=== PATIENT | female | born 1950 | race Caucasian/White ===

== ENCOUNTER 2018-01-05 06:47 | Emergency (ER) | payer MEDICARE, OTHER, SELFPAY ==
[2018-01-05 06:51] VITALS: BP 189/98; PULSE 73; RESP 16; TEMP 36.9; O2SAT 94; BMI 20.9
--- NOTE | 2018-01-05 07:05 | XR_ITS ---
XR chest 2V Ordering Physician: Mode Egan MD Patient Age: 67 years: Female HISTORY: ITS.REASON: coughcough congestion TECHNIQUE: PA lateral chest COMPARISON :PA and lateral chest FINDINGS Lungs are hyperexpanded with slight flattening of the diaphragm. I believe there is some mild central airway inflammation particularly at the right infrahilar region. Suggestion minor streaky infiltrate here. Costochondral calcifications also into density at the medial right base. No focal consolidation evident. Heart elma and mediastinal structures satisfactory. No pneumothorax. No pleural effusion. Chest wall satisfactory. T-spine intact IMPRESSION--------- Mild hyperexpansion. Mild chronic changes A suspect central airway inflammatory changes with suggestion minimal streaky infiltrate right infrahilar region.
--- NOTE | 2018-01-05 07:17 | HMH.EDGENADL ---
ED Disposition Clinical Impression: RAD (reactive airway disease) Qualifiers: Asthma severity: moderate Asthma persistence: persistent Asthma complication type: with acute exacerbation Qualified Code(s): J45.41 - Moderate persistent asthma with (acute) exacerbation Acute bronchitis Qualifiers: Bronchitis organism: unspecified organism Qualified Code(s): J20.9 - Acute bronchitis, unspecified Disposition: Home, Self-Care Condition on Discharge: Good Instructions: DI for Acute Bronchitis, DI for Reactive Airway Disease-Adult Prescriptions: Albuterol Sulfate [Albuterol HFA Inhaler] 2 puffs IH Q4H PRN #1 inh PRN Reason: Shortness Of Breath Or Wheezing Amoxicillin/Potassium Clav [Augmentin 875-125 Tablet] 1 tab PO Q12H #20 tab Referrals: Yunier Carreon MD [Primary Care Provider] - Time of Disposition: 08:07 - Critical Care Critical Care Time: No Attestation: On , the high probability of a clinically significant, sudden or life threatening deterioration of the following system(s) required my full and direct attention, intervention and personal management. The time I documented below is in addition to time spent performing reported procedures but includes the following listed in this critical care notation. Medical Decision Making - Medical Records Medical records reviewed: Yes: I reviewed the patient's medical records. Vital Signs: 01/05/18 06:51 Temperature 98.4 F Temperature Source Oral Pulse Rate [Left Radial] 73 Respiratory Rate 16 Blood Pressure [Right Arm] 189/98 Blood Pressure Mean [Right Arm] 128 Blood Pressure Source [Right Arm] Automatic Cuff Blood Pressure Position [Right Arm] Sitting 02 Sat by Pulse Oximetry 94 L Oxygen Delivery Method Room Air - Lab Data Lab results reviewed: Yes: I reviewed the patient's lab results. Lab Results 01/05/18 07:00: WBC 8.6, RBC 4.67, Hgb 12.6, Hct 39.7, MCV 85.1, MCH 27.0, MCHC 31.8, RDW 15.3, Plt Count 267, MPV 7.8, Neut % (Auto) 71.4, Lymph % (Auto) 19.3, [place] % (Auto) 8.4, Eos % (Auto) 0.5, Baso % (Auto) 0.4, Neut # (Auto) 6.1, Lymph # (Auto) 1.7, [place] # (Auto) 0.7, Eos # (Auto) 0.0, Baso # (Auto) 0.0 01/05/18 07:00: Sodium 133 L, Potassium 3.3 L, Chloride 95 L, Carbon Dioxide 34 H, Anion Gap 7.3, BUN 11, Creatinine 0.65, Estimated Creat Clear 51, Estimated GFR 91, Est GFR ( Amer) 110, Glucose 86 01/05/18 07:00: Influenza Type A Ag Negative, Influenza Type B Ag Negative, Group A Strep Rapid Negative Result diagrams: 01/05/18 07:00 01/05/18 07:00 Orders (Tests/Meds): ED MEDICATIONS Discontinued Medications Generic Name Dose Route Start Last Admin Trade Name Freq PRN Reason Stop Dose Admin Albuterol/Ipratropium 3 ml 01/05/18 08:01 Duoneb 3ml Neb IH 01/05/18 08:02 ONCE ONE Ceftriaxone Sodium 1,000 mg/ 50 mls @ 100 mls/hr 01/05/18 08:02 01/05/18 08:07 Sodium Chloride IV 01/05/18 08:03 100 mls/hr ONCE ONE Administration Protocol ORDERS Category Date Time Status Chest XR 2 view (NOT portable) [XR chest 2V] Stat Exams 01/05/18 07:05 Taken Cardiac Enzymes Stat Lab 01/05/18 07:00 Received D-Dimer Stat Lab 01/05/18 07:00 Received Strep Screen Confirmation Stat Micro 01/05/18 07:00 Received EKG Request [ECG Request by /Broderick] Stat Y 01/05/18 08:11 Ordered - Radiology Data #1 Image(s): Chest Image Reviewed: Yes I reviewed the patient's radiology image Preliminary Findings: Normal/NAD - ECG Data Tracing #1 I reviewed this ECG and interpreted as documented below: ECG normal with no acute: arrhythmias, ischemia, conduction abnormalities, chamber hypertrophy Normal Sinus Rhythm: No - Chetan Inquiry Pt receiving controlled substance: No - Reevaluation(s) Time: 08:15 Reevaluation #1: 814-case turned over to Dr. Dumont, awaiting results, and NEB treatment General Adult HPI - General Chief complaint: Shortness of Breath/Dyspnea Stated complaint: SOB Mode of Arrival
[2018-01-05 07:22] LABS: Basophils % 0.4 % (0.1-2.0); Eosinophils % 0.5 % (0.1-12.0); Hematocrit 39.7 % (37.0-47.0); Hemoglobin 12.6 g/dL (12.2-16.2); Lymphocytes # 1.7 K/mm3 (0.7-4.5); Lymphocytes % 19.3 K/mm3 (10-50); Mean Corpuscular HGB Conc 31.8 g/dL (31.8-35.4); Mean Corpuscular Volume 85.1 fl (81-99); Mean Platelet Volume 7.8 fl (7.4-10.4); Monocytes # 0.7 K/mm3 (0.1-1.0); Monocytes % 8.4 % (1.7-9.3); Neutrophils # 6.1 K/mm3 (1.8-7.8); Neutrophils % 71.4 % (37.0-80.0); Platelet Count 267 K/mm3 (142-424); Red Blood Count 4.67 M/mm3 (4.20-5.40); Red Cell Distribution Width 15.3 % (11.5-17.5); White Blood Count 8.6 K/mm3 (4.8-10.8)
[2018-01-05 07:39] LABS: Strep Scrn Group A (Rapid) Negative (Negative)
[2018-01-05 08:17] LABS: Anion Gap 7.3 mEq/L (5-15); Carbon Dioxide 34 mmol/L (21.0-32.0); Chloride 95 mmol/L (98-107); Potassium 3.3 mmoL/L (3.5-5.1); Sodium 133 mmol/L (136-145)
[2018-01-05 08:18] LABS: Blood Urea Nitrogen 11 mg/dL (7-18); Creatinine Clearance Estimated 51 mL/min (0-300); Creatinine,Serum 0.65 mg/dL (0.55-1.02); Estimated Glomerular Filt Rate 91 ml/min (>60); GFR (African American) 110 ML/MIN (>60); Glucose 86 mg/dL (74-106)
[2018-01-05 08:25] VITALS: PULSE 76; PULSE 80
[2018-01-05 08:32] LABS: Creatine Kinase 148 U/L (26-192)
[2018-01-05 08:33] LABS: CKMB Relative Index 0.5 U/L (0-4.0); Creatine Kinase MB 0.8 mg/ml (0.0-3.6); Troponin I < 0.02 ng/ml (0.00-0.06)
[2018-01-05 08:35] LABS: D-Dimer 340 (0-400)
[2018-01-05 10:09] VITALS: BP 179/85; PULSE 69; RESP 20; TEMP 36.9; O2SAT 93
== END 2018-01-05 10:16 | disposition home or self-care (01) ==
PROVIDERS: Emergency Provider Emergency Medicine; Family Provider Internal Medicine Adolescent Medicine; PCP Internal Medicine Adolescent Medicine
DX: J45.41 Moderate persistent asthma with (acute) exacerbation (principal); J20.9 Acute bronchitis, unspecified; F17.210 Nicotine dependence, cigarettes, uncomplicated
CPT/HCPCS: 71046; 80048; 82550; 82553; 84484; 85025; 85378; 87275; 87276; 87430; 93005; 93041; 96365; 96374; 96375; 99283

== ENCOUNTER → 2018-06-09 08:18 | Outpatient (CLI) | payer MEDICARE, OTHER, SELFPAY ==
--- NOTE | 2018-06-09 08:21 | MM_ITS ---
MM Dig screening mamm BI w/CAD CAD Screening COMPARISON: Digital mammograms with CAD 10/08/2016 and 09/22/2015 INDICATION: There is no personal or family history of breast cancer TECHNIQUE: Standard CC and MLO images were obtained. R2 CAD reviewed. FINDINGS: The breasts are composed primarily of fat with minimal scattered fibroglandular densities in each breast. There is a mole marker left breast. There is no suspicious lesion in either breast and there are no suspicious microcalcifications. There are small nodes in both axilla. IMPRESSION: Fatty type breast parenchyma with no suspicious lesion seen BI-RADS Category: 2 Benign Finding(s) RECOMMENDED FOLLOW-UP: 1YR - 1 YEAR FOLLOW-UP (A letter has been sent to the patient regarding results of the study.)
--- NOTE | 2018-06-09 08:27 | CA_ITS ---
PROCEDURE: 2-D M-mode and color Doppler study INDICATIONS FOR THE TEST: Chest pain COPD Heart Murmur+ Tobacco Smoking+ Palpitations Fatigue Syncope Edema Hypertension+Diabetes Mellitus Rheumatic Fever SOB GORDON Obesity Hyperlipidemia+ Family History HD Additional History PATIENT INFORMATION HEIGHT: 65 WEIGHT:130 GENDER: Female B/P:189/98 2-D/M-MODE INTERPRETATION: 2-D MEASUREMENTS OBSERVED VALUES IN CMS Right Ventricular Dimension (RVDd) 2.5 Interventricular Septum (Thickness)(IVsd) 1.3 Left Ventricular Internal Dimensions(LVIDd) 4.4 Left Ventricular Posterior Wall (Thickness)(LVPWd) 1.3 Aortic Root 3.0 Aortic Cusp Separation 1.1 Left Atrial Dimensions (LAD) 4.3 2D 1. Left atrium is mildly enlarged, left ventricle is normal size, mild concentric left ventricular hypertrophy, visually estimated ejection fraction 55% with no obvious regional wall motion abnormality. 2. The right atrium and right ventricle are normal size and contractility. 3. The aortic valve is minimally thickened and calcified. With restriction the leaflet mobility. 4. Mitral valve has mitral annular calcification. 5. The tricuspid valve is structurally normal. 6. No significant pericardial effusion noted. 7. Pulmonic valve is poorly visualized. DOPPLER INTERROGATION: 1. The maximum aortic out flow velocity recorded study is 2.3 m/s, resulting in a mean gradient across valve of 12 mmHg, this represents mild aortic stenosis, there is no significant aortic insufficiency seen. 2. The mitral inflow velocity within normal range, there is no mitral stenosis, there is mild mitral regurgitation, grade 1 diastolic dysfunction seen with tissue Doppler evidence of raised left atrial pressure. 3. Mild tricuspid regurgitation noted, tricuspid and jet velocity insufficient for calculation of the right ventricular systolic pressure. CONCLUSION: 1. Mildly enlarged left atrium, normal left ventricular size, mild concentric left ventricular hypertrophy, visually estimated ejection fraction 55% with no obvious regional wall motion abnormality, grade 1 diastolic dysfunction seen with tissue Doppler evidence of raised left atrial pressure. 2. Thickened and calcified aortic valve, mean gradient across valve of 12 mmHg, this represents mild aortic stenosis, there is no significant aortic insufficiency seen. 3. Mild mitral and tricuspid regurgitation 4. No significant pericardial effusion noted.
== END ==
PROVIDERS: Family Provider Internal Medicine Adolescent Medicine; PCP Internal Medicine Adolescent Medicine; Visit Provider Nurse Practitioner Family
DX: Z12.31 Encounter for screening mammogram for malignant neoplasm of breast (principal); R01.1 Cardiac murmur, unspecified
CPT/HCPCS: 77067; 93306

== ENCOUNTER → 2019-05-12 12:35 | Outpatient (CLI) | payer MEDICARE, OTHER, SELFPAY ==
--- NOTE | 2019-05-12 12:41 | MR_ITS ---
MR lumbar spine wo con HISTORY: ITS.REASON: LUMBAGO WITH SCIATICA ORDERING PHYSICIAN: Molly Beck PATIENT AGE: 69 years Comparison: None TECHNIQUE: Standard multiplanar multiecho sequences are performed without contrast. 3-D MIP and myelographic images are also rendered and reviewed FINDINGS: There were no areas of subluxation. There is mild scoliosis. There are areas of low T1 and increased T2 signal consistent with marrow edema especially L3 vertebral level with moderate compression of formerly along the right side of the L3 vertebral body with mild paraspinal reaction. There is no evidence of a posterior displaced fracture fragment. The other areas of marrow edema or consistent with type I degenerative changes at the anterior T-2-3 level. There are areas of loss of disc space height throughout the lumbar spine which is more severe at L2-3 and L3-4 and moderate at L4-5. There are generalized mild bulge is at T11-12 and T12-L1 level. There is no conus deformity. L1-2 shows mild bulge with mild ventral thecal sac deformity and only mild facet hypertrophy. L2-3 moderate disc bulge with moderate facet hypertrophy and moderate to severe thecal sac attenuation. L3-4 shows mild bulge and facet hypertrophy with moderate generalized thecal sac attenuation. L4-5 shows mild bulge and moderate facet hypertrophy with moderate thecal sac attenuation greater along the left lateral recess. L5-S1 shows mild bulge and moderate facet hypertrophy greater on the right with mild thecal sac attenuation. There are a few small rounded foci of fluid signal within the posterior soft tissues adjacent to the L5 spinous process and are probably small cysts which are nonspecific there is a similar focus lateral to the right L5-S1 facet likely a degenerative synovial cyst. Foraminal areas show some severe effacement of the epidural fat causing severe foraminal stenosis which occurs on the left at L4-5 and severe on the right at L2-3 and L4-5. The conus is normal. There are several levels of crowding of the cauda equina nerve roots, which is more evident at L2-3. IMPRESSION: Multiple levels of diffuse intervertebral osteochondrosis with associated disc bulges. As discussed above acquired central canal stenosis due to the bulges and posterior element hypertrophy and this is moderate to severe at L2-3, L3-4 and L4-5 with also severe left lateral recess stenosis at L4-5 and milder central stenosis at L5-S1 and L1-S2. Severe foraminal stenosis on the left at L 4-5 and on the right at L2-3 and L 3-4. Moderate right-sided L3 compression fracture which is likely acute to subacute without encroachment upon the vertebral canal.
== END ==
PROVIDERS: PCP Nurse Practitioner Family; Visit Provider Nurse Practitioner Family
DX: M54.42 Lumbago with sciatica, left side (principal)
CPT/HCPCS: 72148; 76376

== ENCOUNTER 2019-05-27 10:00 | Outpatient (RCR) | payer MEDICARE, OTHER, SELFPAY | END 2019-06-09 15:22 | disposition home or self-care (01) | LOC: PT.CARL 10:00 | PROVIDERS: Visit Provider Nurse Practitioner Family | DX: M54.42 Lumbago with sciatica, left side (principal) | CPT/HCPCS: 97012; 97014; 97110; 97140; 97163; G0283 ==

== ENCOUNTER 2019-08-17 10:00 | Outpatient (RCR) | payer MEDICARE, OTHER, SELFPAY | END 2019-09-14 11:00 | disposition home or self-care (01) | LOC: PT.CARL 10:00 | PROVIDERS: PCP Nurse Practitioner Family; Visit Provider Neurological Surgery | DX: M54.5 Low back pain (principal) | CPT/HCPCS: 97014; 97110; 97163; G0283 ==

== ENCOUNTER 2021-03-19 11:00 | Outpatient (RCR) | payer MEDICARE, OTHER, SELFPAY | END 2021-04-19 09:49 | disposition home or self-care (01) | LOC: PT.CARL 11:00 | PROVIDERS: PCP Nurse Practitioner Family; Visit Provider Neurological Surgery | DX: Z48.89 Encounter for other specified surgical aftercare (principal); M54.5 Low back pain | CPT/HCPCS: 97110; 97140; 97163 ==

== ENCOUNTER → 2021-03-30 12:43 | Outpatient (CLI) | payer MEDICARE, OTHER, SELFPAY ==
--- NOTE | 2021-03-30 12:46 | CA_ITS ---
APPROVED REPORT EXAM: Comprehensive 2D, Doppler, and color-flow Echocardiogram Marine Services Technician: Natali Grace RDCS Ht: 5 ft 5 in Wt: 130lbs BSA: 1.65 BP: 174/92 mmHg Indications: Murmur, Shortness of Breath, Fatigue, Hyperlipidemia, Hypertension/HDD, smoker, COPD 2D Dimensions LVOT 1.92 cm (M/F) 1.5-2.5 LA Volume 37.80 mL LA Volume Index [id number] mL/m2 (M/F) 16-34 M-Mode Dimensions RVDd 2.21 cm (0.9-2.6) LA Diam 4.48 cm (1.9-4.0) LVDd 4.53 cm (3.5-5.7) Ao Diam 3.12 cm (2.0-3.7) LVDs 2.82 cm (3.5-5.7) IVSd 1.48 cm (0.6-1.1) PWd 1.27 cm (0.6-1.1) EF (Teich) 67.90% FS 37.70% EDV (Teich) 93.90 mL ESV (Teich) 30.10 mL LV Diastology E Decel Time 360.00 (160-240 msec) E/A Ratio 0.66 Aortic Valve LVOT Max 182.00 (70-110 cm/s) LVOT VTI 42.75 cm AoV Peak Tim. 300.00 (50-130 cm/s) AO Peak GR. 36.00 mmHg AO Mean GR. 19.00 (<5 mmHg) AO VTI 68.56 (18-25 cm) HILARIA (VTI) 1.81 (2.5-4.5 cm2) Mitral Valve MV A Velocity 111.00 (40-130 cm/s) E/A Ratio 0.66 MV Decel. Time 360.00 (160-240 ms) Pulmonary Valve PV Peak Velocity 72.00 (50-150 cm/s) Tricuspid Valve TR P. Velocity 239.00 cm/s RAP Estimate 10.00 mmHg RVSP 32.80 mmHg Left Ventricle Left atrium is mildly enlarged, left ventricle is normal size, mild concentric left ventricular hypertrophy, visually estimated ejection fraction 55% with no regional wall motion abnormality, grade 1 diastolic dysfunction seen without tissue Doppler evidence of raise left atrial pressure. Right Ventricle Right atrium and right ventricle are mildly enlarged with normal contractility. Aortic Valve Aortic valve is thickened and calcified, mean gradient across valve is 21 mmHg, valve area is 1.6 cm, represents mild aortic stenosis, there is no aortic insufficiency. Mitral Valve Mitral valve is mildly thickened, there is mild mitral regurgitation. Tricuspid Valve Tricuspid grossly normal, there is mild tricuspid regurgitation, tricuspid regurgitation jet velocity is inadequate for calculation of the right ventricular systolic pressure. Pulmonic Valve Pulmonic valve is poorly visualized. Great Vessels Aortic root is normal size. Pericardium No significant pericardial effusion noted. Conclusion 1. Mildly enlarged left atrium, normal left ventricular size, mild concentric left ventricular hypertrophy, visually estimated ejection fraction 55% with no regional wall motion abnormality, grade 1 diastolic dysfunction seen without tissue Doppler evidence of raise left atrial pressure. 2. Thickened and calcified aortic valve with mean gradient across valve of 21 mmHg, valve area 1.6 cm, represents mild aortic stenosis. There is no aortic insufficiency. 3. Mild mitral and tricuspid regurgitation. 4. No significant pericardial effusion noted. Electronically signed by : Yusef Bradley, 04/01/2021 10:30:49
== END ==
PROVIDERS: PCP Nurse Practitioner Family; Visit Provider Nurse Practitioner Family
DX: I35.0 Nonrheumatic aortic (valve) stenosis (principal)
CPT/HCPCS: 93306

== ENCOUNTER → 2021-05-29 14:33 | Outpatient (CLI) | payer MEDICARE, OTHER, SELFPAY ==
--- NOTE | 2021-05-29 14:37 | MR_ITS ---
PROCEDURE INFORMATION: Exam: MR Thoracic Spine Without Contrast Exam date and time: 05/29/2021 2:37 PM Age: 71 years old Clinical indication: Pain in thoracic spine; Prior surgery; Surgery date: 1-6 months; Additional info: Thoracic, thoracolumbar and lumbosacral disc disorders. PT had back surgery in dec 2020 and has had back pain since. PT has a medtronic stimulator model #73712. Mri conditional. No prior TECHNIQUE: Imaging protocol: Multiplanar magnetic resonance images of the thoracic spine without intravenous contrast. COMPARISON: FINDINGS: Vertebrae: There are partially imaged vertical rods and pedicle screws at T11, T12 and L1. Spinal stimulator enters at the T9/10 level and terminates at T7. Spinal cord: Normal signal. No cord compression. T1-T2: No significant disc disease. No significant neural foraminal or spinal canal stenosis. T2-T3: No significant disc disease. No significant neural foraminal or spinal canal stenosis. T3-T4: There is shallow disc bulging. No significant neural foraminal or spinal canal stenosis. T4-T5: There is shallow disc bulging. No significant neural foraminal or spinal canal stenosis. T5-T6: There is shallow disc bulging. There is mild facet hypertrophy. No neural foraminal or significant spinal canal stenosis. T6-T7: No significant disc disease. No significant spinal canal stenosis. T7-T8: There is diffuse disc bulging. There is mild facet hypertrophy. The spinal canal and neural foramina are patent. T8-T9: There is diffuse disc bulging. There is mild facet hypertrophy. There is mild right and moderate left neural foraminal narrowing. No significant spinal canal stenosis. T9-T10: There is diffuse disc bulging. There is mild facet hypertrophy. There is mild right neural foraminal narrowing. T10-T11: There is diffuse disc bulging. There is mild facet hypertrophy. There is moderate to severe right and [id number] left neural foraminal narrowing. There is mild canal stenosis. T11-T12: There are fusion changes. There is shallow disc bulging. No significant spinal canal stenosis. Soft tissues: Unremarkable. IMPRESSION: 1. Changes reflecting thoracolumbar fusion and indwelling spinal stimulator. 2. Multilevel degenerative disc disease as described.
== END ==
PROVIDERS: PCP Nurse Practitioner Family; Visit Provider Nurse Practitioner Family
DX: M51.17 Intervertebral disc disorders with radiculopathy, lumbosacral region; M51.15 Intervertebral disc disorders with radiculopathy, thoracolumbar region
CPT/HCPCS: 72146

== ENCOUNTER → 2021-05-31 13:56 | Outpatient (CLI) | payer MEDICARE, OTHER, SELFPAY ==
--- NOTE | 2021-05-31 13:58 | MR_ITS ---
PROCEDURE: MR LUMBAR SPINE WO CON CLINICAL INDICATION: THORACIC, THORACOLUMBAR AND LUMBOSACRAL DISC DISORDER Lbp. Prior hx back surgery January 07. No injury or trauma. MR MR THORACIC SPINE WO CON from 05/29/2021 TECHNIQUE: Standard multiplanar multiecho sequences are performed without contrast. 3-D MIP and myelographic images are also rendered and reviewed FINDINGS: There is normal alignment. The spinal cord ends at the L2 level. There has been extensive lumbar surgery with inter pedicular screws at every level except for L3 with resultant significant artifact which obscures the disc space and surrounding anatomy. Posterior laminectomy perform from T12-S1. T12-L1: Inter pedicular screws present with resultant artifact. Minimal right paracentral disc protrusion. L1-L2: Inter pedicular screws present with resultant artifact. There is a small right paracentral disc herniation with minimal inferior extrusion. The disc is extruded inferiorly for length 10 mm. This has developed since the previous exam. L2-L3: Inter pedicular screws present at L2. Left-sided foraminal narrowing from facet and ligamentum hypertrophy. L3-L4: Inter pedicular screws present with artifact. L4-5: Inter pedicular screws present with artifact. Bilateral foraminal narrowing L5-S1: Mild bulging disc. Left-sided foraminal narrowing. There is mild diffuse enlargement of the thecal sac. Posterior to the thecal sac there is fluid intensity from T12-L4 within the laminectomy site. At the L2-L3 level there is some decreased T2 signal posterior to the thecal sac best seen on the sagittal images causing some impingement of the thecal sac posteriorly. This could be related to some residual bony elements from the surgery or ossification at the surgical site. This is causing some posterior impingement upon the thecal sac as the sac is dilated above and below this region. Please correlate with surgical procedure. IMPRESSION: 1. Extensive postsurgical changes from T12-S1. Please see above for detailed description at each level. Artifact is present from the inter pedicular screws obscuring fine detail.. 2. Small right paracentral disc protrusion at T12-L1 3. Small right paracentral disc herniation at L1-L2 with inferior extrusion 4. Areas of foraminal narrowing as described above. 5. Epidural postsurgical fluid collection posteriorly from T12-L4. 6. At the L2-L3 level there is some decreased T2 signal posterior to the thecal sac best seen on the sagittal images causing some impingement of the thecal sac posteriorly. This could be related to some residual bony elements from the surgery or ossification at the surgical site. This is causing some posterior impingement upon the thecal sac as the sac is dilated above and below this region. Please correlate with surgical procedure. Dictated by: David Garcia MD 06/01/2021 09:14 David Garcia MD in [place] 06/01/2021 09:16
== END ==
PROVIDERS: PCP Nurse Practitioner Family; Visit Provider Nurse Practitioner Family
DX: M51.15 Intervertebral disc disorders with radiculopathy, thoracolumbar region (principal)
CPT/HCPCS: 72148; 76376

== ENCOUNTER → 2021-06-01 13:37 | Outpatient (CLI) | payer MEDICARE, OTHER, SELFPAY ==
--- NOTE | 2021-06-01 13:41 | MR_ITS ---
PROCEDURE: MR CERVICAL SPINE WO CON CLINICAL INDICATION: THORACIC, THORACOLUMBAR DISC DISORDERS COMPARISON: No exams were available for comparison TECHNIQUE: Standard multiplanar multiecho sequences are performed without contrast. 3-D MIP and myelographic images are also rendered and reviewed FINDINGS: There is normal alignment. Mildly prominent cisterna magna. C2-C3: Unremarkable. C3-C4: Degenerative disc disease with 3 mm anterolisthesis of C3. Moderate right and mild left foraminal narrowing. Minimal bulging disc with borderline canal stenosis without cord impingement. C4-C5: Degenerative disc disease with mild bulging disc with canal stenosis of 10 mm. There is minimal contour deformity of the cord anteriorly from the bulging disc. Mild right and moderate to severe left-sided foraminal narrowing from facet hypertrophic change. C5-C6: Degenerative disc disease with bulging disc and endplate hypertrophic change with canal stenosis of 8 mm. There is mild right and moderate to severe left-sided foraminal narrowing from facet hypertrophic change. The bulging disc is slightly eccentric toward the left. Minimal contour deformity of the cord from the bulging disc and endplate hypertrophic change. C6-C7: Degenerative disc disease with minimal bulging disc. [id number] left-sided foraminal narrowing. Canal stenosis of 10 mm without cord contour deformity C7-T1: Mild degenerative disc disease. 3 mm anterolisthesis of C7. T1-T2: 3 mm anterolisthesis of T1. There is 2 mm anterolisthesis of T2 on T3. There is degenerative disc disease at T3-T4 with 3 mm anterolisthesis Degenerative disc disease T4-T5 with minimal bulging disc. No extruded herniated disc evident. IMPRESSION: Multilevel cervical spondylosis as detailed above with bulging disc, facet hypertrophic change with canal stenosis and foraminal narrowing. Please see above for detailed description at each level. No extruded herniated disc apparent Dictated by: David Garcia MD 06/03/2021 12:23 David Garcia MD in [place] 06/03/2021 12:23
== END ==
PROVIDERS: PCP Nurse Practitioner Family; Visit Provider Nurse Practitioner Family
DX: M51.15 Intervertebral disc disorders with radiculopathy, thoracolumbar region (principal); M51.17 Intervertebral disc disorders with radiculopathy, lumbosacral region
CPT/HCPCS: 72141; 76376

== ENCOUNTER 2021-06-04 10:09 | Day surgery (SDC) | payer MEDICARE, OTHER, SELFPAY ==
[2021-06-04] VITALS (7 sets, daily range): BP systolic 74–121; BP diastolic 42–87; PULSE 68–77; RESP 16–18; TEMP 36.7–37.1; O2SAT 96–98; BMI 47.7
[2021-06-04 10:07] LABS: Coronavirus 19, PCR Not Detected (NotDetected); Influenza A, PCR Not Detected (NotDetected); Influenza B, PCR Not Detected (NotDetected)
--- NOTE | 2021-06-04 11:20 | P.PN_ITS ---
[facility] Anesthesia Checklist - Patient Identification Patient Identification: Arm Band - Structural Data Admitted From: Home Planned Operative Procedure/s: Colonoscopy Consent for Planned Operative Procedure(s) Verified: Yes - NPO Status Verified Time NPO: 00:00 - Airway Assessment C-Spine Mobility Assessed: Yes TMJ Mobility Assessed: Yes Dentition: Poor Dentition - Neurological Assessment Level of Consciousness: Awake Hx Seizures: No Numbness or tingling in extremities: No - Anesthesia Plan Anesthesia Risk discussed: Yes Anesthesia Plan: Verified ASA Class: II Anesthesia Type: MAC [facility] History I have reviewed the patient's past medical history: Yes Medical History: Reports:: Heart Murmur, Hypertension Denies:: Cancer, Diabetes Mellitus Type 1, Diabetes Mellitus Type 2, Internal Pacemaker, MRSA, Seizures *Have you ever received a pneumonia vaccine?: Yes *Have you received a flu vaccine this season?: Yes Anesthesia experience/problems:: None Other Surgeries: No: Pacemaker Amputation: No Fractures: No - *Social History Smoking Status: Current every day smoker Tobacco Type: cigarettes # Packs/Day (cigarettes): 1 Alcohol Intake: never Alcohol Intake Frequency:: a few times a week Substance Use Type: denies use *Occupational Status:: retired Housing: house Household Members: spouse *Travel in the last 8 weeks: None Family Hx:: Unable to obtain
--- NOTE | 2021-06-04 11:59 | P.PCN_ITS ---
[facility] Procedure Note Procedure Note:: Colonoscopy Procedure Report: Colonoscopy with cold snare polypectomy Endoscopist: Rene Wadsworth II, MD Referring physician: RAYMOND Ann Date of Procedure: June 04, 2021 Equipment: Olympus 190 variable stiffness pediatric colonoscope Sedation: MAC sedation Indication: Mrs. Scott is a 71-year-old female with a marked change in bowel function. The patient did have prior lumbosacral back surgery and had a stabilizing thoracolumbar surgery (Dr. Jad Jolly [facility]). She has had marked obstipation/incomplete defecation. She has been on Lortab 7.5 mg by mouth every 6 hours for chronic back pain. Her back pain did change and worsen after the surgery. She has used soapsuds enemas and Colace. She also started Senokot. She is taking Gas-X and MiraLAX. She does report bloating, gassiness, belching and generalized abdominal discomfort. She does have more pain in the right upper quadrant on the costal margin. The pain does radiate around and into the back. She has had early satiety and reduced appetite. Movantik was very expensive. Metoclopramide did not improve her symptoms. She had no improvement with lactulose and had tried magnesium citrate. She reports no rectal bleeding or family history of colon cancer. Procedure: Prior to the procedure, a history and physical exam was performed, and patient's medications and allergies were reviewed. The risks, benefits and alternatives of the sedation and procedure were discussed with the patient. All questions we re answered and informed consent was obtained. The patient was brought to the procedure room. Patient identification and proposed procedure were verified by the physician and the nurse. The patient was placed in a left lateral decubitus position and the scope was passed under direct vision. Throughout the procedure, the patient's blood pressure, pulse, and oxygen saturations were monitored continuously. The colonoscopy was accomplished without difficulty. The patient tolerated the procedure well. Findings: On digital rectal examination there was normal rectal tone. There were no external hemorrhoids. The colonoscope was introduced through the anal canal to the rectum and advanced to the cecum. The ileocecal valve and appendiceal orifice were identified. The scope was advanced a short distance into the ileum which appeared grossly normal. The scope was then withdrawn into the colon. The cecum, ascending, transverse and descending colon were grossly normal. There was a 4 mm polyp in the sigmoid colon removed via cold snare polypectomy. The rectum was normal. There were no other mucosal abnormalities identified. Upon retroflexion within the rectum there were grade 1-2 internal hemorrhoids.The preparation was excellent throughout with [place] Preparation Score of 9. The cecal time was 12 minutes. Impression: 1. Diminutive sigmoid colon polyp 2. Grade 1-2 internal hemorrhoids Plan: I do feel that the patient has obstipation/incomplete defecation which is multifactorial. I do suspect some outlet constipation related to sacral nerve/pelvic floor musculature. We will discuss treatment options.
== END 2021-06-04 12:45 | disposition home or self-care (01) ==
PROVIDERS: PCP Nurse Practitioner Family; Visit Provider Internal Medicine Gastroenterology
PROC: 0DJD8ZZ Inspection of Lower Intestinal Tract, Via Natural or Artificial Opening Endoscopic (ICD-10-PCS; CPT 45378; principal; 2021-06-04 11:30)
DX: K63.5 Polyp of colon (principal); K64.0 First degree hemorrhoids; I10 Essential (primary) hypertension; R01.1 Cardiac murmur, unspecified; E07.9 Disorder of thyroid, unspecified; J44.9 Chronic obstructive pulmonary disease, unspecified; Z72.0 Tobacco use; Z87.39 Personal history of other diseases of the musculoskeletal system and connective tissue; Z88.8 Allergy status to other drugs, medicaments and biological substances; Z91.040 Latex allergy status; Z79.82 Long term (current) use of aspirin; Z79.899 Other long term (current) drug therapy
CPT/HCPCS: 45385; 88305; J2704; U0003

== ENCOUNTER 2021-09-21 13:40 | Inpatient (IN) | payer MEDICARE, OTHER, SELFPAY ==
[2021-09-21] VITALS (33 sets, daily range): BP systolic 46–147; BP diastolic 31–107; PULSE 10–120; RESP 13–29; TEMP 37.1–37.9; O2SAT 80–99; BMI 24.2; BMI 22.1
--- NOTE | 2021-09-21 13:45 | XR_ITS ---
PROCEDURE: XR CHEST PORTABLE CLINICAL HISTORY: soa COMPARISON: CR CXR2V XR chest 2V from 01/05/2018 FINDINGS: The cardiomediastinal silhouette and pulmonary vascularity are within normal limits. Epidural stimulator device is present in the midthoracic region. There has been prior thoracolumbar surgery with inter pedicular screws at multiple levels. A tubular density overlies the upper aspect of the heart/midthoracic spine region etiology indeterminate. Possibly due to an overlying lead. No acute bony abnormalities. IMPRESSION: Right lower lobe pneumonia. Suggest following till clear Dictated by: David Garcia MD 09/21/2021 14:49 David Garcia MD in [place] 09/21/2021 14:49
--- NOTE | 2021-09-21 13:47 | PC.NURSE ---
RT is placing bipap, and obtaining ABGS.
--- NOTE | 2021-09-21 13:47 | HMH.EDGENADL ---
ED Disposition Clinical Impression: Septic shock, Hypoglycemia, Delirium Right lower lobe pneumonia Qualifiers: Pneumonia type: due to unspecified organism Qualified Code(s): J18.9 - Pneumonia, unspecified organism Anemia Qualifiers: Anemia type: unspecified type Qualified Code(s): D64.9 - Anemia, unspecified Chronic back pain Qualifiers: Back pain location: low back pain Back pain laterality: bilateral Sciatica presence: unspecified whether sciatica present Qualified Code(s): M54.50 - Low back pain, unspecified Disposition: Admitted As Inpatient Condition on Discharge: Serious - Critical Care Critical Care Time: Yes Attestation: On , the high probability of a clinically significant, sudden or life threatening deterioration of the following system(s) required my full and direct attention, intervention and personal management. The time I documented below is in addition to time spent performing reported procedures but includes the following listed in this critical care notation. Total Critical Care Time: 45 Vital system(s) involved:: Shock (Septic) My critical care processes included: Assessment & monitoring of V/S, Initial and Re-exams, Data Review/Interpretation, Coordinating Care, Medication Orders and management, Documentation Medical Decision Making - Chetan Inquiry Pt receiving controlled substance: No [place] was queried for this patient: Yes Vital Signs: 09/21/21 13:42 09/21/21 15:30 09/21/21 16:01 Temperature 99.3 F Temperature Source Axillary Pulse Rate 95 H 92 H Pulse Rate [Right Radial] 106 H Respiratory Rate 20 17 15 Blood Pressure 91/57 L 65/40 L Blood Pressure [Right Radial Artery] 101/87 L Blood Pressure Mean 68 48 Blood Pressure Mean [Right Radial Artery] 91 Blood Pressure Source [Right Radial Artery] Automatic Cuff Blood Pressure Position [Right Radial Artery] Supine 02 Sat by Pulse Oximetry 80 L 98 96 Oxygen Delivery Method CPAP Nasal Cannula Oxygen Flow Rate (LPM) 2 09/21/21 16:09 09/21/21 16:10 09/21/21 16:13 Temperature Temperature Source Pulse Rate 98 H 99 H 96 H Pulse Rate [Right Radial] Respiratory Rate 13 19 13 Blood Pressure 67/48 L 60/40 L 65/42 L Blood Pressure [Right Radial Artery] Blood Pressure Mean 53 44 48 Blood Pressure Mean [Right Radial Artery] Blood Pressure Source [Right Radial Artery] Blood Pressure Position [Right Radial Artery] 02 Sat by Pulse Oximetry 96 96 98 Oxygen Delivery Method Nasal Cannula Nasal Cannula Oxygen Flow Rate (LPM) 2 2 09/21/21 16:15 09/21/21 16:30 09/21/21 16:34 Temperature Temperature Source Pulse Rate 99 H 100 H 101 H Pulse Rate [Right Radial] Respiratory Rate 15 23 23 Blood Pressure 63/44 L 64/44 L 67/45 L Blood Pressure [Right Radial Artery] Blood Pressure Mean 48 47 50 Blood Pressure Mean [Right Radial Artery] Blood Pressure Source [Right Radial Artery] Blood Pressure Position [Right Radial Artery] 02 Sat by Pulse Oximetry 96 96 97 Oxygen Delivery Method Nasal Cannula Oxygen Flow Rate (LPM) 2 09/21/21 16:45 Temperature Temperature Source Pulse Rate 102 H Pulse Rate [Right Radial] Respiratory Rate 17 Blood Pressure 67/45 L Blood Pressure [Right Radial Artery] Blood Pressure Mean 50 Blood Pressure Mean [Right Radial Artery] Blood Pressure Source [Right Radial Artery] Blood Pressure Position [Right Radial Artery] 02 Sat by Pulse Oximetry 98 Oxygen Delivery Method Nasal Cannula Oxygen Flow Rate (LPM) 2 - Lab Data Lab Results 09/21/21 12:58: WBC 23.8 H*, RBC 3.80 L, Hgb 8.6 L, Hct 30.6 L, MCV 80.5 L, MCH 22.5 L, MCHC 28.0 L, RDW 20.0 H, Plt Count 790 H, MPV 7.7, Neut % (Auto) 93.8 H, Lymph % (Auto) 3.4 L, [place] % (Auto) 2.4, Eos % (Auto) 0.1, Baso % (Auto) 0.2, Neut # (Auto) 22.3 H, Lymph # (Auto) 0.8, [place] # (Auto) 0.6, Eos # (Auto) 0.0, Baso # (Auto) 0.1, Total Counted 100, Neutrophils % (Manual) 97 H, Monocytes % (Manual) 3, Platelet Estima
--- NOTE | 2021-09-21 13:52 | PC.NURSE ---
Called giovanna in RAD for chest
[2021-09-21 14:02] LABS: ABG Base Excess -3.9 mmol/L (-2.4-2.3); ABG HCO3 20.7 mmhg (22.0-26.0); ABG Oxygen Saturation 100 % (90-100); ABG PCO2 32.9 mmhg (35.0-45.0); ABG PH 7.42 mmol/L (7.35-7.45); ABG PO2 395.6 mmhg (80-100); ABG TCO2 21.7 mmhg (23-27); Oxygen 100 %; Pressure Support 10; Vent Rate 18
[2021-09-21 14:03] LABS: Allen's Test Patient Unable; Source Right Radial
--- NOTE | 2021-09-21 14:04 | PC.NURSE ---
Pt's BS was very low. It was 121 for EMS.
[2021-09-21 14:07] LABS: Chloride 96 mmol/L (98-107); Sodium 132 mmol/L (136-145)
--- NOTE | 2021-09-21 14:07 | ECG_ITS ---
APPROVED REPORT Exam: Resting ECG HR:103 bpm ECG Measurements Heart Rate [address] 210 P 64 QRSd 106 QRS 96 QT 348 T 72 QTc 455 Conclusion Sinus tachycardia with 1st degree AV block Rightward axis Incomplete right bundle branch block Septal infarct, age undetermined Abnormal ECG Electronically signed by : Yunier Carreon MD 09/22/2021 10:57:21
--- NOTE | 2021-09-21 14:07 | PC.NURSE ---
RT is titrating pt down from Bipap to NC related to ABG results.
[2021-09-21 14:08] LABS: Potassium 4.1 mmoL/L (3.5-5.1)
[2021-09-21 14:10] LABS: Alanine Aminotransferase 26 U/L (12-78); Albumin Level 3.7 g/dl (3.5-5.0); Albumin/Globulin Ratio 0.9 (1.1-1.8); Alkaline Phosphatase 259 U/L (38-126); Anion Gap 17.1 mEq/L (5-15); Aspartate Amino Transferase 68 U/L (14-36); Bilirubin,Total 0.2 mg/dl (0.2-1.3); Blood Urea Nitrogen 28 mg/dl (7-17); Carbon Dioxide 23 mmol/L (22.0-30.0); Creatinine Clearance Estimated 43 mL/min (50-200); Estimated Glomerular Filt Rate 40 ml/min (>60); GFR (African American) 49 ML/MIN (>60); Globulin 3.9 g/dL (1.3-3.2); Total Protein,Serum 7.6 g/dl (6.3-8.2)
[2021-09-21 14:11] LABS: Calcium 9.1 mg/dl (8.4-10.2); Glucose 78 mg/dl (74-100)
[2021-09-21 14:12] LABS: Lactic Acid 1.4 mmol/L (0.7-2.1)
[2021-09-21 14:15] LABS: Basophils # 0.1 K/mm3 (0-0.2); Basophils % 0.2 % (0.1-2.0); Eosinophils % 0.1 % (0.1-12.0); Hematocrit 30.6 % (37.0-47.0); Hemoglobin 8.6 g/dL (12.2-16.2); Lymphocytes # 0.8 K/mm3 (0.7-4.5); Lymphocytes % 3.4 % (10-50); Mean Corpuscular Hemoglobin 22.5 pg (27.0-31.2); Mean Corpuscular Volume 80.5 fl (81-99); Mean Platelet Volume 7.7 fl (7.4-10.4); Monocytes # 0.6 K/mm3 (0.1-1.0); Monocytes % 2.4 % (1.7-9.3); Neutrophils # 22.3 K/mm3 (1.8-7.8); Neutrophils % 93.8 % (37.0-80.0); Platelet Count 790 K/mm3 (142-424); White Blood Count 23.8 K/mm3 (4.8-10.8)
--- NOTE | 2021-09-21 14:17 | CT_ITS ---
PROCEDURE: CT HEAD/BRAIN WO CON CLINICAL INDICATION: AMS COMPARISON: No exams were available for comparison TECHNIQUE: Axial images obtained. All CT scans at the facility use one or more dose reduction, viz: automated exposure control, ma/kV adjustment per patient size (including targeted exams where dose is matched to indication, i.e. head), or iterative reconstruction technique. FINDINGS: No midline shift, mass effect, intracranial hemorrhage, hydrocephalus, or extra-axial fluid collection is evident. There is a small area of hyperdensity in the left globus pallidus. This may be due to an area mineralization. There are no previous studies available for comparison. Patient's head is tilted in the CT gantry.There is generalized atrophy with hypoattenuation of the periventricular white matter consistent with microangiopathic changes.. The calvarium has an unremarkable appearance. No mastoid effusion. No sinus air-fluid level. IMPRESSION: No definite acute intracranial findings. Small focus of increased density in the left globus pallidus possibly due to an area of mineralization and may be confirmed with follow-up. Dictated by: David Garcia MD 09/21/2021 15:02 David Garcia MD in [place] 09/21/2021 15:02
[2021-09-21 14:20] LABS: MANUAL DIFFERENTIAL MANUAL DIFFERENTIAL (MANUAL DIFF)
[2021-09-21 14:21] LABS: NT Pro Brain Natriuretic Pep. 6560 pg/mL (0-125)
[2021-09-21 14:23] LABS: Troponin I 0.06 ng/ml (0.00-0.034)
[2021-09-21 14:24] LABS: Coronavirus 19, PCR Not Detected (NotDetected); Influenza A, PCR Not Detected (NotDetected); Influenza B, PCR Not Detected (NotDetected)
[2021-09-21 14:32] LABS: Salicylate 8.8 mg/dL (2.0-20.0)
[2021-09-21 14:33] LABS: Acetaminophen < 10 ug/ml (10-30)
[2021-09-21 14:42] LABS: Ethyl Alcohol < 10 mg/dl (0-10)
[2021-09-21 14:46] LABS: Microscopic, Urine URINE MICROSCOPIC (MICROSCOPIC)
[2021-09-21 14:51] LABS: Appearance,Urine SL CLOUDY (Clear); Bilirubin,Urine Negative (Negative); Blood, Urine 2+ (Negative); Color,Urine YELLOW (Yellow); Glucose,Urine (UA) Negative (Negative); Ketones,Urine Negative (Negative); Leukocyte Esterase,Urine Negative (Negative); Nitrate,Urine Negative (Negative); PH,Urine 5.5 (5.0-8.5); Protein,Urine TRACE (Negative); Specific Gravity, Urine 1.025 (1.005-1.030); Urobilinogen,Urine 0.2 EU/dl (0.2)
[2021-09-21 14:55] LABS: Monocytes % 3 % (2-9); Neutrophils % 97 % (42-76); Total Cells Counted 100
[2021-09-21 14:56] LABS: Hypochromasia 2+; Microcytosis 1+; Platelet Estimate Marked Increase
[2021-09-21 14:57] LABS: Spherocytes 1+
[2021-09-21 15:02] LABS: POC Glucose,Bedside 123 (70-110)
--- NOTE | 2021-09-21 15:23 | PC.NURSE ---
DANIELLE WILLIAMSON speaking with DR. blue who is bullion weigher for service
[2021-09-21 15:24] LABS: Bacteria,Urine 1+ /lpf
[2021-09-21 15:32] LABS: Amphetamine/Metha Screen,Urine Negative ng/ml (<1000)
[2021-09-21 15:33] LABS: Barbiturates Screen,Urine Negative ng/ml (<200); Benzodiazepines Screen,Urine Negative ng/ml (<200)
[2021-09-21 15:34] LABS: Cannabinoid Screen,Urine Positive ng/ml (<50); Cocaine Screen,Urine Negative ng/ml (<300)
[2021-09-21 15:35] LABS: Opiate Screen,Urine Positive ng/ml (<300)
[2021-09-21 15:36] LABS: Phencyclidine Screen,Urine Negative ng/ml (<25)
--- NOTE | 2021-09-21 15:55 | HMH.HP ---
*Admission Date: 09/21/21 *Chief complaint: AMS *History of present illness: Ms. Scott is a 71 yo female brought in by ambulance. History obtained from , EMS, patient. The patient arrives on CPAP and has confusion and therefore cannot give limited history herself. EMS states that they were called for back pain. They found the patient confused and hypoxic with a room air pulse oximetry in the 70s, coming up only into the 80s on nonrebreather mask followed by CPAP. They report that they observed a productive cough with green sputum. Patient's states that she has had increase in her chronic back pain for a couple of days. He tried to get her to go to her primary care doctor yesterday but she did not want to. He says that yesterday she was not confused like this. He says that he found her laying on the couch today stating that she wanted to go to the hospital. She has COPD and is on nebulizer treatments at home. She is a smoker. She is not on oxygen or CPAP/BiPAP. She is on pain medication, but does not know what it is. Medications were brought in and the only analgesic present is meloxicam. No known exposure to illnesses including COVID-19. She has been vaccinated against COVID-19. He states that she had back surgery with rods placed in March 2020. Since then she has had chronic back pain as well as distention of her abdomen which she says has been evaluated, but no cause found. states that she has had colonoscopy by Dr. Wadsworth because of her abdominal distention. In the emergency department she is not in respiratory distress and has normal color. Poor waveform on pulse ox. ABGs obtained which show PO2 of greater than 400 on BiPAP with no hypercapnia. She is transitioned to nasal cannula oxygen. Reported fingerstick blood sugar by EMS was 120s. However, in the emergency department blood sugar was 50. She has no history of diabetes. Blood sugar was rechecked and was 48. D50 administered with improvement in mental status. 2:20 PM: Still slow to respond and confusion after D50. Pulse ox remains 100% on 2 L nasal cannula. Rectal temperature was 103 degrees. Nurse reports that stool was not melanotic or bloody. Medicated for fever. Chest x-ray shows a right lower lobe pneumonia. Antibiotics ordered. Agrees to admit the patient to the hospital. (above as per ER physican) [facility] History I have reviewed the patient's past medical history: Yes Medical History: Reports:: Chronic Obstructive Pulmonary Disease (COPD), Gastroesophageal Reflux Disease(GERD), Heart Murmur, Hypertension Denies:: Cancer, Diabetes Mellitus Type 1, Diabetes Mellitus Type 2, Internal Pacemaker, MRSA, Seizures *Have you ever received a pneumonia vaccine?: No *Have you received a flu vaccine this season?: Yes Other Medical History: Reports: Hypothyroidism Other Surgeries: No: Pacemaker Amputation: No Fractures: No - *Social History Smoking Status: Current every day smoker Tobacco Type: cigarettes # Packs/Day (cigarettes): 1 Alcohol Intake: never Alcohol Intake Frequency:: a few times a week Substance Use Type: denies use *Occupational Status:: retired Housing: house Household Members: spouse *Travel in the last 8 weeks: None Family Hx:: No significant family history Review of Systems - Constitutional Reports chills, Reports fever(s), Reports weakness - Eyes Denies blurry vision, Denies double vision - ENT Reports nasal congestion, Denies sore throat - *Cardiovascular Reports shortness of breath, Denies chest pain - *Respiratory Reports cough, Reports shortness of breath - *Gastrointestinal Denies abdominal pain, Denies loose stools, Denies nausea, Denies vomiting - *Genitourinary Denies difficulty urinating, Denies painful urination - *Musculoskeletal Reports back pain - *Neurologic Reports confusion, Reports weakness, Denies headache(s) Meds Home Medications Medication Instructions Recorded Confirmed
[2021-09-21 15:56] LABS: Methadone Screen,Urine Negative ng/ml (<300)
--- NOTE | 2021-09-21 16:28 | PC.NURSE ---
Vitals were not available for 14:00, pt's blood sugar was too low. We took her sugar twice, and delivered a dextrose. At [id number] there are no vitals RT was titrating pt from bipap to NC, and PT when to CT.
--- NOTE | 2021-09-21 16:35 | PC.NURSE ---
Aravind called with a room 217
--- NOTE | 2021-09-21 17:18 | PC.NURSE ---
increased to levophed drip to 6mcg at this time will continue to monitor
[2021-09-21 18:24] LABS: Troponin I 0.09 ng/ml (0.00-0.034)
--- NOTE | 2021-09-21 18:34 | PC.NURSE ---
per fun house operator pt will be boarding in ER r/t staffing.
--- NOTE | 2021-09-21 18:46 | PC.NURSE ---
Called report to el ROSENBAUM.
--- NOTE | 2021-09-21 19:00 | PC.NURSE ---
PT ARRIVED FLOOR VIA STRETCHER FROM ED W/STAFF AT 1900
--- NOTE | 2021-09-21 19:03 | PC.NURSE ---
Titrated down to 10mcg at 1833.
--- NOTE | 2021-09-21 19:04 | PC.NURSE ---
I titrated it up to 12mcg when BP sats where not going up.
--- NOTE | 2021-09-21 20:00 | PC.NURSE ---
unable to complete admission documents due to no family present and pt very confused, pt only oriented to self and poor historian at this time
--- NOTE | 2021-09-21 21:35 | PC.NURSE ---
lab notified RN that troponin 0.3
--- NOTE | 2021-09-21 21:45 | PC.NURSE ---
spoke with MD Mayen about pt's elevated troponin and off levo drip, MD instructed to consult MD Hebert with cardiology; notified MD Hebert of pt's bp 147/58 (87) and elevated troponin of .30, stated to let him know if any changes in bp or have to restart drip, will do so and continue to monitor
[2021-09-21 23:15] LABS: POC Glucose,Bedside 97 (70-110)
[2021-09-22] VITALS (35 sets, daily range): BP systolic 108–201; BP diastolic 47–104; PULSE 71–107; RESP 16–28; TEMP 36.6–37.3; O2SAT 90–100; BMI 22.2
[2021-09-22 06:15] LABS: POC Glucose,Bedside 122 (70-110)
--- NOTE | 2021-09-22 09:30 | PC.NURSE ---
notified Dr. Cheek of critical hgb value and troponin. Hgb- 6.6; Troponin- 0.32. Provider ordered 2 units to be transfused. RN requested home medications be restarted to combat SBP in the 190's
[2021-09-22 09:49] LABS: Eosinophils % 0.1 % (0.1-12.0); Monocytes # 0.5 K/mm3 (0.1-1.0); Monocytes % 3.1 % (1.7-9.3)
--- NOTE | 2021-09-22 09:50 | HMH.ACPN2 ---
Internal Medicine - PN: Subj *Date: 09/22/21 *Time: 09:50 Interval history: Patient's states that she is slightly less confused this morning but has been very agitated. Nursing is requesting to reorder her home medications. They have already restarted her gabapentin. She has apparently been complaining of back pain, which is chronic and she takes pain medication and gabapentin at home on a regular basis. She has been pulling out her IVs and mittens were placed. She has pulled the mittens off as well. She is oriented to person today. Exam Vital signs and Labs for Last 24 Hours: Temp Pulse Resp BP Pulse Ox 98 F 71 20 174/86 H 97 09/22/21 05:54 09/22/21 06:38 09/22/21 05:54 09/22/21 05:54 09/22/21 05:54 Laboratory Results - last 24 hr 09/21/21 12:58: WBC 23.8 H*, RBC 3.80 L, Hgb 8.6 L, Hct 30.6 L, MCV 80.5 L, MCH 22.5 L, MCHC 28.0 L, RDW 20.0 H, Plt Count 790 H, MPV 7.7, Neut % (Auto) 93.8 H, Lymph % (Auto) 3.4 L, [place] % (Auto) 2.4, Eos % (Auto) 0.1, Baso % (Auto) 0.2, Neut # (Auto) 22.3 H, Lymph # (Auto) 0.8, [place] # (Auto) 0.6, Eos # (Auto) 0.0, Baso # (Auto) 0.1, Total Counted 100, Neutrophils % (Manual) 97 H, Monocytes % (Manual) 3, Platelet Estimate Marked increase, Hypochromasia 2+, Microcytosis 1+, Spherocytes 1+ 09/21/21 12:58: Sodium 132 L, Potassium 4.1, Chloride 96 L, Carbon Dioxide 23, Anion Gap 17.1 H, BUN 28 H, Creatinine 1.30 H, Estimated Creat Clear 43, Estimated GFR 40 L, Est GFR ( Amer) 49 L, Glucose 78, Calcium 9.1, Total Bilirubin 0.2, AST 68 H, ALT 26, Alkaline Phosphatase 259 H, Troponin I 0.06 H, Total Protein 7.6, Albumin 3.7, Globulin 3.9 H, Albumin/Globulin Ratio 0.9 L 09/21/21 12:58: Lactate 1.4 09/21/21 12:58: NT-Pro-B Natriuret Pep 6560 H 09/21/21 12:58: Salicylates 8.8, Acetaminophen < 10 L 09/21/21 12:58: Plasma/Serum Alcohol < 10 09/21/21 13:45: Specimen Source Right radial, O2 % 100, ABG pH 7.42, ABG pCO2 32.9 L, ABG pO2 395.6 H, ABG HCO3 20.7 L, ABG Total CO2 21.7 L, ABG O2 Saturation 100, ABG Base Excess -3.9 L, David Test Patient unable, Vent Rate 18, Tidal Volume bipap 04/0709/21/21 13:45: SARS-CoV-2 (PCR) Not detected, Influenza A Untype (PCR) Not detected, Influenza Type B (PCR) Not detected 09/21/21 14:34: Urine Color Yellow, Urine Appearance Sl cloudy, Urine pH 5.5, Ur Specific [place] 1.025, Urine Protein Trace, Urine Glucose (UA) Negative, Urine Ketones Negative, Urine Blood 2+, Urine Nitrate Negative, Urine Bilirubin Negative, Urine Urobilinogen 0.2, Ur Leukocyte Esterase Negative, Urine RBC 5-10, Urine WBC 3-5, Ur Squamous Epith Cells None, Urine Bacteria 1+ 09/21/21 14:34: Urine Opiates Screen Positive H, Urine Methadone Screen Negative, Ur Barbituates Screen Negative, Ur Phencyclidine Scrn Negative, Ur Amphetamines Screen Negative, U Benzodiazepines Scrn Negative, Urine Cocaine Screen Negative, U Marijuana (THC) Screen Positive H 09/21/21 14:54: POC Glucose 123 H 09/21/21 16:09: Blood Type A Negative, Antibody Screen Negative, Crossmatch (AHG) See Detail 09/21/21 16:58: Troponin I 0.09 H 09/21/21 16:59: Blood Type Confirm A Negative 09/21/21 20:32: Troponin I 0.30 H 09/21/21 22:47: POC Glucose 97 09/22/21 06:07: POC Glucose 122 H I & O for Last 24 hours: Intake & Output 09/19/21 09/20/21 09/21/21 09/22/21 11:59 11:59 11:59 11:59 Output Total 600 / 600 Balance -600 / -600 Weight 138 lb 7 oz - Constitutional agitated - *Routine Respiratory Exam Present: decreased breath sounds, rales (right base) - *Routine Cardiovascular Exam Present: RRR, murmur - *Routine Abdominal Exam Present: soft, normoactive bowel sounds. Absent: tenderness - *Routine Extremities Exam Absent: cyanosis, clubbing, edema - *Routine Skin Exam Present: warm. Absent: rash - *Routine Neurological Exam Present: altered mental status (with some agitation) Assessment and Plan (1) Right lower lobe pneumonia Status: Acute Qualifiers: Pneumonia type: due to
[2021-09-22 09:54] LABS: Basophils # 0.1 K/mm3 (0-0.2); Basophils % 0.9 % (0.1-2.0); Hematocrit 23.7 % (37.0-47.0); Lymphocytes # 0.5 K/mm3 (0.7-4.5); Lymphocytes % 3.3 % (10-50); Mean Corpuscular HGB Conc 27.9 g/dL (31.8-35.4); Mean Corpuscular Hemoglobin 22.6 pg (27.0-31.2); Mean Platelet Volume 8.4 fl (7.4-10.4); Neutrophils # 13.8 K/mm3 (1.8-7.8); Neutrophils % 92.6 % (37.0-80.0); Platelet Count 618 K/mm3 (142-424); Red Blood Count 2.93 M/mm3 (4.20-5.40); Red Cell Distribution Width 20.1 % (11.5-17.5); White Blood Count 14.9 K/mm3 (4.8-10.8)
[2021-09-22 10:03] LABS: Hemoglobin 6.6 g/dL (12.2-16.2)
[2021-09-22 10:04] LABS: MANUAL DIFFERENTIAL MANUAL DIFFERENTIAL (MANUAL DIFF)
[2021-09-22 10:10] LABS: Chloride 104 mmol/L (98-107); Potassium 3.2 mmoL/L (3.5-5.1); Sodium 136 mmol/L (136-145)
[2021-09-22 10:13] LABS: Anion Gap 10.2 mEq/L (5-15); Blood Urea Nitrogen 17 mg/dl (7-17); Carbon Dioxide 25 mmol/L (22.0-30.0); Creatinine Clearance Estimated 51 mL/min (50-200); Estimated Glomerular Filt Rate 99 ml/min (>60); GFR (African American) 119 ML/MIN (>60)
[2021-09-22 10:14] LABS: Glucose 127 mg/dl (74-100)
[2021-09-22 10:15] LABS: Troponin I 0.32 ng/ml (0.00-0.034)
--- NOTE | 2021-09-22 11:17 | P.CONPHA_ITS ---
[facility] Pharmacy VTE Monitoring - Patient Demographics Admission date: 09/21/21 Report Date: 09/22/21 Time: 11:17 Allergies/Adverse Reactions: Patient Allergies levofloxacin [From Levaquin] Allergy (Intermediate, Verified 09/21/21 17:25) Height: 1.68 m Weight: 62.794 kg Patient Problems: Current Active Problems Septic shock (Acute) Right lower lobe pneumonia (Acute) Hypoglycemia (Acute) Anemia (Acute) Chronic back pain (Chronic) Delirium (Acute) Elevated troponin (Acute) Elevated brain natriuretic peptide (BNP) level (Acute) Acute kidney injury (Acute) Positive urine drug screen (Acute) - VTE Risk Labs: VTE Related Lab Results Hgb 6.6 g/dL (12.2-16.2) L* D 09/22/21 09:14 Hct 23.7 % (37.0-47.0) L 09/22/21 09:14 Plt Count 618 K/mm3 (142-424) H 09/22/21 09:14 BUN 17 mg/dl (7-17) D 09/22/21 09:14 Creatinine 0.60 mg/dl (0.52-1.04) D 09/22/21 09:14 Estimated Creat Clear 51 mL/min (50-200) 09/22/21 09:14 - Prophylaxis VTE Prophylaxis Ordered?: Yes Types of VTE Prophylaxis: TEDS Knee High Location of Applied Device: Bilateral Lower Extremeties
[2021-09-22 12:36] LABS: Eosinophils % 1 % (0-3); Hypochromasia 3+; Lymphocytes % 9 % (10-50); Monocytes % 4 % (2-9); Neutrophils % 81 % (42-76); Total Cells Counted 100
[2021-09-22 12:37] LABS: Anisocytosis 1+; Burr Cells 1+; Microcytosis 1+; Platelet Estimate Moderate Increase
--- NOTE | 2021-09-22 13:54 | HMH.PHAINT ---
MEDICATION RECONCILIATION COMPLETED ON PATIENT USING EXTERNAL FILL HISTORY FROM PHARMACY. -NICHOLAS SALEEM, BONNIED
--- NOTE | 2021-09-22 14:21 | ECG_ITS ---
APPROVED REPORT Exam: Resting ECG HR:100 bpm ECG Measurements Heart Rate 100 AXES [place] 208 P 74 QRSd 88 QRS 95 QT 344 T 51 QTc 443 Conclusion Sinus rhythm with frequent premature ventricular complexes Rightward axis Low voltage QRS Cannot rule out Anterior infarct, age undetermined Abnormal ECG Electronically signed by : Yunier Carreon MD 09/22/2021 22:14:11
[2021-09-22 14:48] LABS: Thyroid Stimulating Hormone 0.46 uIU/mL (0.465-4.68)
--- NOTE | 2021-09-22 16:30 | PC.NURSE ---
Patient has SBP above 190. Requested lisinopril to be restarted.
--- NOTE | 2021-09-22 18:00 | PC.NURSE ---
Patient continues to need to be NT suctioned q4h. Provider notified. Patient takes lasix at home, requested dose. Patient is more lethargic than prior to this morning and is unable to take PO meds, provider notified. Patient made NPO for time being. Patients SBP continues to say above 190's- provider ordered IV metoprolol
[2021-09-22 18:26] LABS: Alanine Aminotransferase 32 U/L (12-78); Albumin/Globulin Ratio 0.8 (1.1-1.8); Alkaline Phosphatase 222 U/L (38-126); Anion Gap 13.2 mEq/L (5-15); Aspartate Amino Transferase 85 U/L (14-36); Bilirubin,Total 0.2 mg/dl (0.2-1.3); Blood Urea Nitrogen 16 mg/dl (7-17); Calcium 8.1 mg/dl (8.4-10.2); Carbon Dioxide 22 mmol/L (22.0-30.0); Chloride 105 mmol/L (98-107); Creatinine Clearance Estimated 51 mL/min (50-200); Estimated Glomerular Filt Rate 99 ml/min (>60); GFR (African American) 119 ML/MIN (>60); Globulin 3.6 g/dL (1.3-3.2); Glucose 122 mg/dl (74-100); Potassium 3.2 mmoL/L (3.5-5.1); Sodium 137 mmol/L (136-145); Total Protein,Serum 6.6 g/dl (6.3-8.2)
--- NOTE | 2021-09-22 18:41 | PC.NURSE ---
Timing on finish of second unit of blood in TAR incorrect, but RN unable to change. Blood finished at 16:18 NOT 17:18.
[2021-09-22 20:12] LABS: Basophils % 0.2 % (0.1-2.0); Eosinophils % 0.2 % (0.1-12.0); Hematocrit 31.8 % (37.0-47.0); Lymphocytes # 0.7 K/mm3 (0.7-4.5); Lymphocytes % 4.6 % (10-50); Mean Corpuscular HGB Conc 29.1 g/dL (31.8-35.4); Mean Corpuscular Volume 82.5 fl (81-99); Mean Platelet Volume 8.4 fl (7.4-10.4); Monocytes # 0.6 K/mm3 (0.1-1.0); Monocytes % 3.6 % (1.7-9.3); Neutrophils # 14.5 K/mm3 (1.8-7.8); Neutrophils % 91.5 % (37.0-80.0); Platelet Count 575 K/mm3 (142-424); Red Blood Count 3.85 M/mm3 (4.20-5.40); White Blood Count 15.9 K/mm3 (4.8-10.8)
[2021-09-22 20:16] LABS: Hemoglobin 9.2 g/dL (12.2-16.2)
[2021-09-22 20:17] LABS: MANUAL DIFFERENTIAL MANUAL DIFFERENTIAL (MANUAL DIFF)
[2021-09-22 20:32] LABS: Anisocytosis 2+; Lymphocytes % 2 % (10-50); Neutrophils % 91 % (42-76); Platelet Estimate Slight Increase; Poikilocytosis 1+; Total Cells Counted 100
[2021-09-23] VITALS (19 sets, daily range): BP systolic 136–190; BP diastolic 71–113; PULSE 65–104; RESP 13–22; TEMP 36.5–37.2; O2SAT 93–100; BMI 22.0
--- NOTE | 2021-09-23 03:45 | PC.NURSE ---
notified MD Faheem rick that pt had a fall with bed alarm on and all siderails up, instructed to order xray of leg where skin tear is, already dressed skin tear, informed appropriate staff and filled out incident report
--- NOTE | 2021-09-23 03:50 | XR_ITS ---
PROCEDURE INFORMATION: Exam: XR Right Knee Exam date and time: 09/23/2021 3:50 AM Age: 71 years old Clinical indication: Injury or trauma; Fall; Blunt trauma; Knee; Right; Injury date: 09/23/2021; Additional info: Fall small abraision RT knee anterior near patella TECHNIQUE: Imaging protocol: XR Right knee. Views: 3 views. COMPARISON: EXTLRWO CT EXT.LOWER-RT-W/O CONTRAST 02/28/2017 8:10 AM FINDINGS: Bones/joints: No acute fracture. There is a 5 mm chronic mineralized body within the intercondylar notch of the knee joint. Mild tricompartmental osteophytosis, with mild joint space loss in the medial and patellofemoral compartments. No significant joint effusion. Soft tissues: No radiopaque foreign body. Calcification near the medial femoral condyle compatible with old MCL injury. Vasculature: Atherosclerotic calcifications. IMPRESSION: 1. No acute finding. 2. Mild tricompartmental degenerative change with a 5 mm intra-articular body.
[2021-09-23 06:40] LABS: POC Glucose,Bedside 106 (70-110)
[2021-09-23 06:56] LABS: Basophils % 0.1 % (0.1-2.0); Eosinophils % 0.2 % (0.1-12.0); Hematocrit 31.6 % (37.0-47.0); Hemoglobin 9.4 g/dL (12.2-16.2); Lymphocytes # 0.7 K/mm3 (0.7-4.5); Lymphocytes % 5.3 % (10-50); Mean Corpuscular HGB Conc 29.8 g/dL (31.8-35.4); Mean Corpuscular Hemoglobin 24.6 pg (27.0-31.2); Mean Corpuscular Volume 82.6 fl (81-99); Mean Platelet Volume 8.5 fl (7.4-10.4); Monocytes # 0.7 K/mm3 (0.1-1.0); Monocytes % 5.7 % (1.7-9.3); Neutrophils # 11.5 K/mm3 (1.8-7.8); Neutrophils % 88.7 % (37.0-80.0); Platelet Count 510 K/mm3 (142-424); Red Blood Count 3.82 M/mm3 (4.20-5.40); Red Cell Distribution Width 19.2 % (11.5-17.5)
[2021-09-23 06:57] LABS: MANUAL DIFFERENTIAL MANUAL DIFFERENTIAL (MANUAL DIFF)
[2021-09-23 07:10] LABS: Lymphocytes % 4 % (10-50); Monocytes % 2 % (2-9); Neutrophils % 85 % (42-76); Platelet Estimate Slight Increase; Total Cells Counted 100
[2021-09-23 07:11] LABS: Anisocytosis 2+; Hypochromasia 2+; Microcytosis 1+; Poikilocytosis 1+
[2021-09-23 07:14] LABS: Anion Gap 11.7 mEq/L (5-15); Blood Urea Nitrogen 16 mg/dl (7-17); Calcium 8.6 mg/dl (8.4-10.2); Carbon Dioxide 30 mmol/L (22.0-30.0); Chloride 103 mmol/L (98-107); Creatinine Clearance Estimated 51 mL/min (50-200); Estimated Glomerular Filt Rate 99 ml/min (>60); GFR (African American) 119 ML/MIN (>60); Glucose 110 mg/dl (74-100); Sodium 142 mmol/L (136-145)
[2021-09-23 07:22] LABS: Potassium 2.7 mmoL/L (3.5-5.1)
--- NOTE | 2021-09-23 10:56 | HMH.ACPN2 ---
Internal Medicine - PN: Subj *Date: 09/23/21 *Time: 10:56 Interval history: Patient is much more alert this AM. Able to respond and converse. No distress. Potassium is low. A run is ordered and p.o. dose increased. Note H&H post transfusion. Exam Vital signs and Labs for Last 24 Hours: Temp Pulse Resp BP Pulse Ox 98.5 F 91 H 18 161/83 H 97 09/23/21 03:30 09/23/21 08:00 09/23/21 08:00 09/23/21 08:00 09/23/21 08:00 Laboratory Results - last 24 hr 09/21/21 16:09: Blood Type A Negative, Antibody Screen Negative, Crossmatch ([facility]) See Detail 09/22/21 09:14: Total Counted 100, Neutrophils % (Manual) 81 H, Band Neutrophils % 2.0, Lymphocytes % (Manual) 9 L, Monocytes % (Manual) 4, Eosinophils % (Manual) 1, Basophils % (Manual) 2.0 H, Metamyelocytes % 1.0, Platelet Estimate Moderate increase, Hypochromasia 3+, Anisocytosis 1+, Microcytosis 1+, Kei Cells 1+ 09/22/21 09:14: Sodium 137, Potassium 3.2 L, Chloride 105, Carbon Dioxide 22, Anion Gap 13.2, BUN 16, Creatinine 0.60, Estimated Creat Clear 51, Estimated GFR 99, Est GFR ( Amer) 119, Glucose 122 H, Calcium 8.1 L, Total Bilirubin 0.2, AST 85 H, ALT 32, Alkaline Phosphatase 222 H, Total Protein 6.6, Albumin 3.0 L D, Globulin 3.6 H, Albumin/Globulin Ratio 0.8 L 09/22/21 09:14: TSH 0.46 L 09/22/21 20:00: WBC 15.9 H, RBC 3.85 L D, Hgb 9.2 L D, Hct 31.8 L, MCV 82.5, MCH 24.0 L, MCHC 29.1 L, RDW 19.0 H, Plt Count 575 H, MPV 8.4, Neut % (Auto) 91.5 H, Lymph % (Auto) 4.6 L, [place] % (Auto) 3.6, Eos % (Auto) 0.2, Baso % (Auto) 0.2, Neut # (Auto) 14.5 H, Lymph # (Auto) 0.7, [place] # (Auto) 0.6, Eos # (Auto) 0.0, Baso # (Auto) 0.0, Total Counted 100, Neutrophils % (Manual) 91 H, Band Neutrophils % 7.0, Lymphocytes % (Manual) 2 L, Platelet Estimate Slight increase, Poikilocytosis 1+, Anisocytosis 2+ 09/23/21 05:45: WBC 13.0 H, RBC 3.82 L, Hgb 9.4 L, Hct 31.6 L, MCV 82.6, MCH 24.6 L, MCHC 29.8 L, RDW 19.2 H, Plt Count 510 H, MPV 8.5, Neut % (Auto) 88.7 H, Lymph % (Auto) 5.3 L, [place] % (Auto) 5.7, Eos % (Auto) 0.2, Baso % (Auto) 0.1, Neut # (Auto) 11.5 H, Lymph # (Auto) 0.7, [place] # (Auto) 0.7, Eos # (Auto) 0.0, Baso # (Auto) 0.0, Total Counted 100, Neutrophils % (Manual) 85 H, Band Neutrophils % 9.0 H, Lymphocytes % (Manual) 4 L, Monocytes % (Manual) 2, Platelet Estimate Slight increase, Hypochromasia 2+, Poikilocytosis 1+, Anisocytosis 2+, Microcytosis 1+ 09/23/21 05:45: Sodium 142, Potassium 2.7 L*, Chloride 103, Carbon Dioxide 30, Anion Gap 11.7, BUN 16, Creatinine 0.60, Estimated Creat Clear 51, Estimated GFR 99, Est GFR ( Amer) 119, Glucose 110 H, Calcium 8.6 09/23/21 06:12: POC Glucose 106 I & O for Last 24 hours: Intake & Output 09/20/21 09/21/21 09/22/21 09/23/21 11:59 11:59 11:59 10:59 Intake Total 240 / 240 370 / 370 Output Total 900 / 900 2850 / 2850 Balance -660 / -660 -2480 / -2480 Weight 138 lb 7 oz 137 lb Microbiology Reports for the Last 24 Hours: Microbiology 09/22/21 15:10 Sputum - Expectorated Sputum Gram Stain - Final 09/22/21 15:10 Sputum - Expectorated Sputum Sputum Culture - Preliminary - Constitutional no acute distress - *Routine HEENT Exam Head: Present: normocephalic Eye: Present: EOMI, PERRL ENT: Present: mucous membranes moist - *Routine Neck Exam Present: supple. Absent: lymphadenopathy - *Routine Respiratory Exam Present: decreased breath sounds, rales (bilaterally) - *Routine Cardiovascular Exam Present: ectopic (monitors some PVC's) - *Routine Abdominal Exam Present: soft, normoactive bowel sounds. Absent: tenderness - *Routine Extremities Exam Absent: cyanosis, clubbing, edema - *Routine Skin Exam Present: warm. Absent: rash - *Routine Neurological Exam Present: alert (moreso) Assessment and Plan (1) Right lower lobe pneumonia Status: Acute Qualifiers: Pneumonia type: due to unspecified organism Qualified Code(s): J18.9 - Pneumonia, unspecified organism Category: Medical Co
--- NOTE | 2021-09-23 11:28 | ECG_ITS ---
APPROVED REPORT Exam: Resting ECG HR:92 bpm ECG Measurements Heart Rate 92 AXES PA 200 P 78 QRSd 92 QRS 96 QT 366 T 48 QTc 452 Conclusion Sinus rhythm with occasional premature ventricular complexes Rightward axis Low voltage QRS Nonspecific T wave abnormality Abnormal ECG Electronically signed by : Yunier Carreon MD 09/24/2021 19:44:37
[2021-09-23 15:28] LABS: Chloride 109 mmol/L (98-107); Sodium 144 mmol/L (136-145)
[2021-09-23 15:29] LABS: Potassium 4.4 mmoL/L (3.5-5.1)
[2021-09-23 15:31] LABS: Blood Urea Nitrogen 16 mg/dl (7-17); Creatinine Clearance Estimated 51 mL/min (50-200); Estimated Glomerular Filt Rate 122 ml/min (>60); GFR (African American) 147 ML/MIN (>60)
[2021-09-23 15:32] LABS: Anion Gap 19.4 mEq/L (5-15); Calcium 9.2 mg/dl (8.4-10.2); Carbon Dioxide 20 mmol/L (22.0-30.0); Glucose 142 mg/dl (74-100)
[2021-09-23 22:04] LABS: POC Glucose,Bedside 152 (70-110)
[2021-09-23 22:04] LABS: POC Glucose,Bedside 177 (70-110)
[2021-09-24] VITALS (13 sets, daily range): BP systolic 110–169; BP diastolic 70–99; PULSE 64–89; RESP 16–21; TEMP 36.6–37.5; O2SAT 90–96; BMI 21.5; BMI 21.6
[2021-09-24 06:11] LABS: POC Glucose,Bedside 171 (70-110)
[2021-09-24 06:26] LABS: Anion Gap 10.9 mEq/L (5-15); Blood Urea Nitrogen 13 mg/dl (7-17); Calcium 8.4 mg/dl (8.4-10.2); Carbon Dioxide 29 mmol/L (22.0-30.0); Chloride 104 mmol/L (98-107); Creatinine Clearance Estimated 50 mL/min (50-200); Estimated Glomerular Filt Rate 99 ml/min (>60); GFR (African American) 119 ML/MIN (>60); Glucose 173 mg/dl (74-100); Potassium 3.9 mmoL/L (3.5-5.1); Sodium 140 mmol/L (136-145)
[2021-09-24 06:45] LABS: Basophils % 0.2 % (0.1-2.0); Eosinophils % 0.2 % (0.1-12.0); Hematocrit 31.9 % (37.0-47.0); Hemoglobin 9.3 g/dL (12.2-16.2); Lymphocytes % 6.4 % (10-50); Mean Corpuscular Hemoglobin 24.3 pg (27.0-31.2); Mean Corpuscular Volume 83.9 fl (81-99); Mean Platelet Volume 9.4 fl (7.4-10.4); Monocytes # 0.8 K/mm3 (0.1-1.0); Monocytes % 5.5 % (1.7-9.3); Neutrophils % 87.8 % (37.0-80.0); Platelet Count 533 K/mm3 (142-424); Red Cell Distribution Width 19.1 % (11.5-17.5); White Blood Count 14.8 K/mm3 (4.8-10.8)
[2021-09-24 06:48] LABS: MANUAL DIFFERENTIAL MANUAL DIFFERENTIAL (MANUAL DIFF)
[2021-09-24 07:42] LABS: Anisocytosis 1+; Hypochromasia 2+; Lymphocytes % 6 % (10-50); Macrocytosis 2+; Monocytes % 5 % (2-9); Neutrophils % 89 % (42-76); Nucleated Red Blood Cells 1; Platelet Estimate Normal; Total Cells Counted 100
--- NOTE | 2021-09-24 08:37 | CT_ITS ---
PROCEDURE: CT CHEST W CON CLINCAL INDICATION: pneumonia COMPARISON: CR CXR2V XR chest 2V from 01/05/2018 CR XR CHEST PORTABLE from 09/21/2021 TECHNIQUE: IV Contrast: 75ml Isovue 370 Axial images obtained with sagittal and coronal reformats. All CT scans at the facility use one or more dose reduction, viz: automated exposure control, ma/kV adjustment per patient size (including targeted exams where dose is matched to indication, i.e. head), or iterative reconstruction technique. FINDINGS: HEART AND MEDIASTINAL STRUCTURES: No evidence of aortic aneurysm or central pulmonary embolus. Aortic valve calcifications are present with calcific plaque also noted in the thoracic aorta. No aneurysm or dissection apparent. There is mild right hilar adenopathy. LUNGS AND PLEURAL SPACES: Small right pleural effusion. Parenchymal opacity is present in the right apex laterally at approximately 2 by 1.5 cm extending to the pleural surface. This may only be due to an area of scarring or atelectatic change. Follow-up suggested as developing nodule is not excluded. Similar but smaller parenchymal opacity superior segment left lower lobe posteriorly. Ground-glass infiltrates are present in both upper lobes with some prominence of the interstitium greater in the right upper lobe causing a cobblestone appearance. Masslike area of consolidation is present in the right middle lobe at 6.5 x 4.6 by 5.4 cm. Scattered locules of air density is noted within this lesion. Necrotizing pneumonia is considered. There are a few small air-fluid levels within this lesion. There is a small right pleural effusion with atelectatic change/volume loss in the right lower lobe posteriorly. Patchy infiltrate noted in the left lower lobe is well. BONY STRUCTURES: Postsurgical changes of lower thoracic and upper lumbar spine with inter pedicular screws at T11, T12, L1, and L2 with mild wedging of T10 and T11. There is an intrathecal neurostimulator device present in the mid to lower thoracic spine. UPPER ABDOMEN: Mildly prominent left adrenal gland. Prior kyphoplasty at T11, T12, L1 ADDITIONAL FINDINGS: No other significant abnormalities. IMPRESSION: 1. Masslike area of consolidation involving the right middle lobe with central locules of air and a few small air-fluid levels. Necrotizing pneumonia or developing abscess is considered. Necrotic neoplasm is also consideration. Follow-up suggested to confirm resolution. There is mild right hilar adenopathy. 2. Bilateral pneumonia with ground-glass attenuation and prominence of the interstitium causing a cobblestone pattern in the upper lobes 3. Irregular subpleural parenchymal opacities in the right upper lobe apical region laterally and superior segment left lower lobe which may be due to areas of atelectasis or scarring. Follow-up suggested to confirm resolution. 4. Small right pleural effusion with right basilar atelectasis. Dictated by: David Garcia MD 09/25/2021 08:42 David Garcia MD in [place] 09/25/2021 08:42
--- NOTE | 2021-09-24 08:39 | HMH.ACPN2 ---
Internal Medicine - PN: Subj *Date: 09/24/21 *Time: 08:39 Interval history: She is improved. She is responsive but not always cogent. She has bilateral rhonchi and some wheezing. Her neck veins are prominent but she has no leg edema. I started order a chest x-ray but I think a CT might be more revealing. I will also consult pulmonology. Exam Vital signs and Labs for Last 24 Hours: Temp Pulse Resp BP Pulse Ox 98.2 F 64 16 110/70 95 09/24/21 07:55 09/24/21 07:55 09/24/21 07:55 09/24/21 07:55 09/24/21 07:55 Laboratory Results - last 24 hr 09/21/21 16:09: Crossmatch ([facility]) See Detail 09/23/21 13:13: POC Glucose 152 H 09/23/21 14:55: Sodium 144, Potassium 4.4 D, Chloride 109 H, Carbon Dioxide 20 L, Anion Gap 19.4 H, BUN 16, Creatinine 0.50 L, Estimated Creat Clear 51, Estimated GFR 122, Est GFR ( Amer) 147 D, Glucose 142 H D, Calcium 9.2 09/23/21 21:56: POC Glucose 177 H 09/24/21 05:38: POC Glucose 171 H 09/24/21 05:39: WBC 14.8 H, RBC 3.80 L, Hgb 9.3 L, Hct 31.9 L, MCV 83.9, MCH 24.3 L, MCHC 29.0 L, RDW 19.1 H, Plt Count 533 H, MPV 9.4, Neut % (Auto) 87.8 H, Lymph % (Auto) 6.4 L, [place] % (Auto) 5.5, Eos % (Auto) 0.2, Baso % (Auto) 0.2, Neut # (Auto) 13.0 H, Lymph # (Auto) 1.0, [place] # (Auto) 0.8, Eos # (Auto) 0.0, Baso # (Auto) 0.0, Total Counted 100, Neutrophils % (Manual) 89 H, Lymphocytes % (Manual) 6 L, Monocytes % (Manual) 5, Nucleated RBCs 1, Platelet Estimate Normal, Hypochromasia 2+, Anisocytosis 1+, Macrocytosis 2+ 09/24/21 05:39: Sodium 140, Potassium 3.9, Chloride 104, Carbon Dioxide 29, Anion Gap 10.9, BUN 13, Creatinine 0.60, Estimated Creat Clear 50, Estimated GFR 99, Est GFR ( Amer) 119, Glucose 173 H D, Calcium 8.4 I & O for Last 24 hours: Intake & Output 09/21/21 09/22/21 09/23/21 09/24/21 12:59 12:59 11:59 11:59 Intake Total 480 / 480 Output Total 500 / 500 Balance - Weight 134 lb Microbiology Reports for the Last 24 Hours: Microbiology 09/21/21 13:45 Blood Blood Culture - Preliminary NO GROWTH AFTER 48 HOURS 09/21/21 13:45 Blood Blood Culture - Preliminary NO GROWTH AFTER 48 HOURS 09/22/21 15:10 Sputum - Expectorated Sputum Gram Stain - Final 09/22/21 15:10 Sputum - Expectorated Sputum Sputum Culture - Preliminary - Constitutional no acute distress - *Routine HEENT Exam Head: Present: normocephalic Eye: Present: EOMI, PERRL ENT: Present: mucous membranes moist - *Routine Neck Exam Present: supple, JVD. Absent: lymphadenopathy - *Routine Respiratory Exam Present: decreased breath sounds, rhonchi, wheezes - *Routine Cardiovascular Exam Present: RRR - *Routine Abdominal Exam Present: soft. Absent: tenderness - *Routine Extremities Exam Absent: edema - *Routine Neurological Exam Present: normal speech. Absent: alert, oriented X3 Assessment and Plan (1) Right lower lobe pneumonia Status: Acute Qualifiers: Pneumonia type: due to unspecified organism Qualified Code(s): J18.9 - Pneumonia, unspecified organism Category: Medical Code(s): J18.9 - Pneumonia, unspecified organism (2) Septic shock Status: Acute Category: Medical Code(s): A41.9 - Sepsis, unspecified organism; R65.21 - Severe sepsis with septic shock (3) Anemia Status: Acute Qualifiers: Anemia type: unspecified type Qualified Code(s): D64.9 - Anemia, unspecified Category: Medical Code(s): D64.9 - Anemia, unspecified (4) Delirium Status: Acute Category: Medical Code(s): R41.0 - Disorientation, unspecified (5) Hypoglycemia Status: Acute Category: Medical Code(s): E16.2 - Hypoglycemia, unspecified (6) Elevated troponin Status: Acute Category: Medical Code(s): R77.8 - Other specified abnormalities of plasma proteins (7) Elevated brain natriuretic peptide (BNP) level Status: Acute Category: Medical Code(s): R79.89 - Other spe
--- NOTE | 2021-09-24 11:39 | HMH.OTEV ---
OT Inpatient Evaluation Rehab OT IP Evaluation Start: 09/24/21 08:54 Freq: ONCE Status: Complete Protocol: Document 09/24/21 11:34 BRIE (Rec[facility]24[facility]21 11[id number] Rehab OT IP Assessment Subjective History Pt oriented x 3 on arrival. Pt agreeable to engage in therapy evaluation. Pt was admitted via ED on 09/21/21 due to Septic shock, hypoglycemia , and confusion. Pt has a past medical history of Chronic Obstructive Pulmonary Disease (COPD), Gastroesophageal Reflux Disease(GERD), Heart Murmur, Hypertensio. Pt reports prior to being in the hosptial she lived at home with her . Pt claims she was independent with all ADLs and IADLs. Pt also still drove. Pt did not use any type of AE during ambulation. Subjective I could do anything I needed to except pressure wash the house. Objective Patient Orientation Person,Place,Birthday Upper Extremity Gross ROM Min Limitation <25% Shoulder ROM Limitations Muscle Weakness Elbow ROM Limitations Muscle Weakness Wrist Limitations of Range of Motion Muscle Weakness Bed Mobility bed mobility-scooting,bed mobility - supine/sit,bed mobility - rolling Assist Level Contact Guard/Hand Hold Transfer Training Sit/Stand Transfer Assist Level Minimal x 1 (25% assist) Rehab OT IP prob,goals,plan Problems Date of Evaluation: 09/24/21 OT IP Problems Bed Mobility,Transfers,Gait, Balance,Self care,Safety Rehab Potential Rehab Potential Good Equipment Needs Assistive Devices Rolling / Wheeled Walker Plan OT intervention Plan Bed Mobility,Transfers,Gait, Balance,Self care,Safety, Therapeutic Exercise OT Plan Frequency BID Duration LOS Discharge Goals Bed Mobility Ability Standby Assistance Sit to Stand Chair Transfer Ability Contact Guard/Hand Hold Chair Transfer Ability Contact Guard/Hand Hold Chair Transfer Technique Sit to/from Ambulatory Chair Transfer Assistive
--- NOTE | 2021-09-24 12:23 | HMH.PTEV ---
Physical Therapy Evaluation Rehab PT IP Evaluation Start: 09/24/21 08:54 Freq: ONCE Status: Active Protocol: Document 09/24/21 12:11 JACKIE (Rec: 09/24/21 12:22 JACKIE [id number]) Subjective/History History History This is the initial evaluation for Michelle Scott. Pt is a 71 y/o female admitted to [facility] via EMS for back pain. EMS found pt confused and hypoxic with a room air pulse oximetry in the 70s, coming up only into the 80s on nonrebreather mask followed by CPAP. Pt's was in room upon arrival. Pt was on supplemental O2. -note done by Martha Shaw, SPT Subjective Subjective Pt states she was living at home with who is in good health before this medical episode. Pt states she did not use any AD to get around and that she could take care of herself. Pt denies any falls prior to admission to [facility]. 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 Rehab PT IP Eval Objective Appearance Patient Behavior Appropriate,Cooperative Patient Orientation Person,Place,Name,Birthday, Year Difficulty following instructions mild Speech Pattern Clear,Appropriate,Coherent Ambulation Patient Able to Ambulate No Balance Ability to Arise Able, uses arms to help Sitting Balance Steady, safe Standing Balance Steady, wide stance Dynamic Sitting Balance Ability Good Dynamic Standing Balance Ability Fair Transfers Bed Transfer Ability Supervision/Stand by Sit to Stand Bed Transfer Ability Contact Guard/Hand Hold Rehab PT IP prob,goals,plan Problems Date of Evaluation: 09/24/21 PT IP Problems Bed Mobility,Transfers,Gait, Balance,Self care,Safety Rehab Potential Rehab Potential Fair Equipment Needs Assistive Devices Rolling / Wheeled Walker Plan PT Intervention Plan Bed Mobility,Transfers,Gait, Balance,Self care,Safety, Therapeutic Exercise PT Plan Frequency BID Duration LOS Disc
--- NOTE | 2021-09-24 14:17 | DIET.NUTRFU ---
Addendum entered by Yuliana Galvan 09/26/21 11:35: PO intakes 25-50% + BID supplements. Improvement in intakes with improved mentation but remain low dt pain with eating caused by oral candidiasis, to receive treatment. Moderate soft modifications added to diet order. Pt reports constipation, to have bowel regimen. Original Note: Pt has had minimal nutritional intake t/o stay- 3d. She refused all nourishment today. BID ensure added to order. Please encourage/cue at meal times and offer snacks/supplements with meal refusals and t/o day.
--- NOTE | 2021-09-24 17:08 | PC.NURSE ---
[PT IS RESTING IN BED WITH AT BEDSIDE. PT HAS BEEN VERY DROWSY T/O THE SHIFT HOWEVER WILL AWAKEN EASILY TO VERBAL STIMULI. PT WAS A CONTACT GUARD ASSIST TO GET UP TO THE CHAIR BUT WAS ONLY ABLE TO TOLERATE SITTING UP IN THE CHAIR FOR 15 MIN AND REQUESTED TO GO BACK TO BED. PT HAS REMAINED DEPENDENT ON STAFF FOR ALL ADL'S. PT HAS BEEN UNWILLING TO HELP WITH TURNING AND REPOSITIONING IN BED. LUNG SOUNDS HAVE SCATTERED RHONCHI. ABDOMEN DISTENDED WITH HYPOACTIVE BOWEL SOUNDS. WILL CONTINUE TO MONITOR.
--- NOTE | 2021-09-24 17:20 | HMH.PULMCON ---
*Admission Date: 09/21/21 *Reason for consult:: Acute on chronic hypoxic respiratory failure, pneumonia *History of present illness: Ms. Scott is 71-year-old female greater than [id number] smoker history current smoker on Trelegy inhaler at home presented to the hospital with worsening respiratory distress and cough and found to be having pneumonia and pulmonary was called for further management. [facility] History Medical History: Reports:: Chronic Obstructive Pulmonary Disease (COPD), Gastroesophageal Reflux Disease(GERD), Heart Murmur, Hypertension Denies:: Cancer, Diabetes Mellitus Type 1, Diabetes Mellitus Type 2, Internal Pacemaker, MRSA, Seizures *Have you ever received a pneumonia vaccine?: Yes *Have you received a flu vaccine this season?: Yes Other Medical History: Reports: Hypothyroidism Other Surgeries: No: Pacemaker Amputation: No Fractures: No - *Social History Smoking Status: Current every day smoker Tobacco Type: cigarettes # Packs/Day (cigarettes): 1 Alcohol Intake: never Alcohol Intake Frequency:: a few times a week Substance Use Type: denies use *Occupational Status:: retired Housing: house Household Members: spouse *Travel in the last 8 weeks: None Family Hx:: No significant family history ROS - Cons Reports anorexia, Reports body ache(s), Reports chills, Reports fatigue - Card Reports shortness of breath, Reports shortness of breath with activity - Resp Respiratory: Reports chest congestion, Reports cough, Reports dyspnea on exertion, Reports excessive phlegm production, Reports cough with sputum production - GI Gastrointestingal: Denies: abdominal pain Meds Home Medications Medication Instructions Recorded Confirmed Type Albuterol Sulfate [Albuterol HFA 2 puffs IH Q4H PRN #1 inh 01/05/18 09/21/21 Rx Inhaler] Aspirin [Aspirin 81mg chewable 81 mg PO DAILY 06/04/21 09/21/21 History tab] Cholecalciferol (Vitamin D3) 10 mcg PO DAILY 06/04/21 09/22/21 History [Vitamin D-400] Omeprazole Magnesium [Prilosec Otc 20 mg PO DAILY 06/04/21 09/21/21 History 20mg Tab] Alendronate Sodium [Fosamax 70mg 70 mg PO WEEKLY 09/21/21 09/21/21 History Tablet] Gabapentin 600 mg PO TID 09/21/21 09/22/21 History Hydrocodone/Acetaminophen 1 each PO Q6HP PRN 09/21/21 09/22/21 History [Hydrocodone-Acetamin 7.5-325] Levothyroxine Sodium [Euthyrox] 75 mcg PO DAILY 09/21/21 09/21/21 History Lisinopril/Hydrochlorothiazide 2 each PO DAILY 09/21/21 09/22/21 History [Lisinopril-Hctz 20-25 mg Tab] Umeclidinium Brm/Vilanterol Tr 1 puff PO DAILY 09/21/21 09/21/21 History [Anoro Ellipta 62.5-25 Mcg INH] Allergies Allergy/AdvReac Type Severity Reaction Status Date / Time levofloxacin [From Levuin] Allergy Intermediate Verified 09/21/21 17:25 Exam - Constitutional Constitutional:: Present: no acute distress, comfortable - HENMT Exam HENMT: Present: normocephalic, atraumatic - Eye Exam Eyes:: Present: normal appearance both eyes and related structures - Neck Exam Neck:: Present: normal visual inspection - Respiratory Exam Respiratory:: Present: able to speak in complete sentences, no respiratory distress, rales, rhonchi, wheezing - Cardiovascular Exam Cardiac:: Present: S1, S2 - GI Exam GI:: Present: soft - Skin Exam Skin: Present: warm, no rash - Neurological Exam Neurological: Present: alert, awake - Extremities Exam Extremities: Present: no cyanosis, no clubbing, no edema Internal Medicine - CN: Reslt - Labs CBC & Chem 7: 09/24/21 05:39 09/24/21 05:39 Labs: Short CBC 09/24/21 Range/Units 05:39 WBC 14.8 H (4.8-10.8) K/mm3 Hgb 9.3 L (12.2-16.2) g/dL Hct 31.9 L (37.0-47.0) % Plt Count 533 H (142-424) K/mm3 BMP 09/24/21 05:39 Sodium 140 Potassium 3.9 Chloride 104 Carbon Dioxide 29 BUN 13 Creatinine 0.60 Glucose 173 H D Calcium 8.4 - ABG Interpretation ABG results: 09/21/21 13:45 ABG pH
--- NOTE | 2021-09-24 20:59 | CA_ITS ---
APPROVED REPORT EXAM: Comprehensive 2D, Doppler, and color-flow Echocardiogram Division [employer]: Tanja Garza CRT Ht: 5 ft 6 in Wt: 134lbs BSA: 1.69 BP: 101/87 mmHg Indications: COPD, Murmur, Fatigue, Peripheral Edema, Hyperlipidemia, Hypertension/HDD, GERD, Alcohol use, smoker 2D Dimensions LVOT 1.29 cm (M/F) 1.5-2.5 LA Volume 31.40 mL LA Volume Index 18.50 mL/m2 (M/F) 16-34 M-Mode Dimensions RVDd 3.07 cm (0.9-2.6) LA Diam 4.59 cm (1.9-4.0) LVDd 4.19 cm (3.5-5.7) Ao Diam 3.03 cm (2.0-3.7) LVDs 3.28 cm (3.5-5.7) IVSd 1.23 cm (0.6-1.1) PWd 1.11 cm (0.6-1.1) EF (Teich) 44.30% FS 21.70% EDV (Teich) 78.10 mL TAPSE 1.41 (<1.7) ESV (Teich) 43.50 mL LV Diastology E Decel Time 170.00 (160-240 msec) E/A Ratio 0.57 MED E' 7.10 (< 7 cm/sec) MED A' 7.30 cm/s E'/MED E' Ratio 10.69 (>14) LAT E' 7.00 (<10 cm/sec) LAT A' 9.70 cm/s E/LAT E' Ratio 10.84 (>14) Aortic Valve LVOT Max 182.00 (70-110 cm/s) LVOT VTI 33.34 cm AoV Peak Tim. 236.00 (50-130 cm/s) AO Peak GR. 22.70 mmHg AO Mean GR. 11.60 (<5 mmHg) AO VTI 40.69 (18-25 cm) HILARIA (VTI) 1.07 (2.5-4.5 cm2) Mitral Valve MV E Max Tim. 76.00 (40-130 cm/s) MV A Velocity 132.00 (40-130 cm/s) E/A Ratio 0.57 MV Decel. Time 170.00 (160-240 ms) MV PHT 50.00 ms Pulmonary Valve PV Peak Velocity 112.00 (50-150 cm/s) Tricuspid Valve TR P. Velocity 224.00 cm/s RAP Estimate 10.00 mmHg RVSP 30.10 mmHg Left Ventricle Left atrium is moderately enlarged, left ventricle is normal size, mild concentric left ventricular hypertrophy, visually estimated ejection fraction 45%, there is abnormal septal motion, there is flattening of the intraventricular septum consistent with diastolic raising the concerns of pressure and volume overload and right ventricle. Grade 2 diastolic dysfunction seen with Dr. Vallecillo [atrial pressure. Right Ventricle Right atrium and right ventricle moderately enlarged, contractility of the right ventricle is moderately reduced. Aortic Valve Aortic valve is thickened and calcified valve area is 1.6 cm by represents mild stenosis, there is no aortic insufficiency. Mitral Valve Mitral valve has mitral annular calcification leaflets are minimally thickened, there is no mitral stenosis, there is mild mitral regurgitation. Tricuspid Valve Tricuspid valve is grossly normal, there is mild tricuspid regurgitation, calculated right ventricular systolic pressure 29 mmHg. Pulmonic Valve Pulmonic valve is poorly visualized. Great Vessels Aortic root is normal size. Inferior vena cava is mildly dilated without significant inspiratory collapse. Pericardium No significant pericardial effusion noted. Conclusion 1. Biatrial enlargement, normal left ventricular size, mild concentric left ventricular hypertrophy, visually estimated ejection fraction 45%, with grade 2 diastolic dysfunction without tissue Doppler evidence of raise left atrial pressure, there is abnormal septal motion, there is flattening of the intraventricular septum during systole diastole raising the concerns for presence of pressure and volume overload and right ventricle. 2. Moderately enlarged right ventricle with moderate reduction right ventricular systolic function. 3. Thickened and calcified aortic valve with mild aortic stenosis, valve area is 1.6 cm???. 4. Mild mitral and tricuspid regurgitation, calculated right ventricular systolic pressure is 29 mmHg. 5. No significant pericard
[2021-09-25] VITALS (10 sets, daily range): BP systolic 124–160; BP diastolic 61–86; PULSE 61–82; RESP 12–18; TEMP 36.6–37.1; O2SAT 93–97; BMI 22.8
--- NOTE | 2021-09-25 03:42 | PC.NURSE ---
A&OX4. TOLERATING 3LNC T/O SHIFT. PT HAS HAD NO C/O THUS FAR. HOWEVER, PT HAS REQUESTED ASSISTANCE T/O SHIFT WITH ADLS INCLUDING REPOSITIONING, OXYGEN APPLICATION, TAKING PILLS, ETC. PT HAS SLEPT MAJORITY OF SHIFT. BED SAFETY APPLIED D/T PREVIOUS FALL. VSS WILL CONTINUE TO MONITOR.
[2021-09-25 07:17] LABS: Basophils % 0.2 % (0.1-2.0); Eosinophils % 0.3 % (0.1-12.0); Hematocrit 31.9 % (37.0-47.0); Hemoglobin 9.3 g/dL (12.2-16.2); Lymphocytes # 0.9 K/mm3 (0.7-4.5); Lymphocytes % 7.3 % (10-50); Mean Corpuscular Hemoglobin 24.4 pg (27.0-31.2); Mean Platelet Volume 9.9 fl (7.4-10.4); Monocytes # 0.8 K/mm3 (0.1-1.0); Monocytes % 6.2 % (1.7-9.3); Neutrophils # 11.1 K/mm3 (1.8-7.8); Neutrophils % 86.1 % (37.0-80.0); Platelet Count 535 K/mm3 (142-424); Red Cell Distribution Width 19.4 % (11.5-17.5); White Blood Count 12.9 K/mm3 (4.8-10.8)
[2021-09-25 07:21] LABS: MANUAL DIFFERENTIAL MANUAL DIFFERENTIAL (MANUAL DIFF)
[2021-09-25 07:22] LABS: Anion Gap 8.4 mEq/L (5-15); Blood Urea Nitrogen 8 mg/dl (7-17); Calcium 8.5 mg/dl (8.4-10.2); Carbon Dioxide 30 mmol/L (22.0-30.0); Chloride 102 mmol/L (98-107); Creatinine Clearance Estimated 53 mL/min (50-200); Estimated Glomerular Filt Rate 157 ml/min (>60); GFR (African American) 190 ML/MIN (>60); Glucose 124 mg/dl (74-100); Potassium 4.4 mmoL/L (3.5-5.1); Sodium 136 mmol/L (136-145)
--- NOTE | 2021-09-25 07:30 | HMH.CNCARD ---
History of Present Illness Consult date: 09/25/21 Requesting physician: Layla Cheek Consult reason: aortic stenosis Chief complaint: aortic stenosis, CMP History of present illness: 71-year-old female admitted to [facility] on 09/21/2021 with septic shock and hypoglycemia. After chest x-ray was performed, patient was noted to have right lower lobe pneumonia. Chest CT has been ordered. Pending results. Cardiology was consulted due to patient undergoing echocardiogram which revealed EF 45% with grade 2 diastolic dysfunction. There is abnormal septal wall wall motion abnormality, there is flattening of the intraventricular septum during systolic diastolic raising the concerns of presence of pressure and volume overload and right ventricle. Moderately enlarged right ventricle with moderate reduced right ventricular systolic function. Thickening and calcified aortic valve with mild aortic stenosis, valve area is 1.6. Mild MR and TR noted with a calculated right ventricular systolic pressure of 29 mmHg. Patient has no known history of coronary artery disease. Patient states no known history of valvular disease. Patient states she is unsure if she is ever seen a phosphorus processing supervisor. Patient denies chest pain, tightness or pressure. Patient does complain of shortness of breath. Patient is noted to have supplemental oxygen. Patient does have history of COPD. Patient states she has been a smoker for over 20 years. History of GERD. Aortic murmur is noted. Patient states she does have history of hypertension. Vital signs are stable. Patient does complain of a cough which is productive. special events manager reveals junctional rhythm with a heart rate of 97 bpm. Patient states overall she is feeling much better. Upon admission troponins were noted as elevated. This may have been due to demand ischemia. Jugular vein distention is noted. No swelling of the lower extremities noted. Patient denies palpitations or dizziness. Patient denies nausea, vomiting or diarrhea. Patient states she did have some toast this a.m., and felt much better. Echo:Conclusion (10/07) 1. Biatrial enlargement, normal left ventricular size, mild concentric left ventricular hypertrophy, visually estimated ejection fraction 45%, with grade 2 diastolic dysfunction without tissue Doppler evidence of raise left atrial pressure, there is abnormal septal motion, there is flattening of the intraventricular septum during systole diastole raising the concerns for presence of pressure and volume overload and right ventricle. 2. Moderately enlarged right ventricle with moderate reduction right ventricular systolic function. 3. Thickened and calcified aortic valve with mild aortic stenosis, valve area is 1.6 cm???. 4. Mild mitral and tricuspid regurgitation, calculated right ventricular systolic pressure is 29 mmHg. 5. No significant pericardial effusion noted. 6. Inferior vena cava is dilated without significant inspiratory collapse. [facility] History Medical History: Reports:: Cardiomyopathy, Chronic Obstructive Pulmonary Disease (COPD), Gastroesophageal Reflux Disease(GERD), Heart Murmur, Hypertension, Valvular Heart Disease Denies:: Cancer, Diabetes Mellitus Type 1, Diabetes Mellitus Type 2, Internal Pacemaker, MRSA, Seizures *Have you ever received a pneumonia vaccine?: Yes *Have you received a flu vaccine this season?: Yes Other Medical History: Reports: Hypothyroidism Other Surgeries: No: Pacemaker Amputation: No Fractures: No - *Social History Smoking Status: Current every day smoker Tobacco Type: cigarettes # Packs/Day (cigarettes): 1 Alcohol Intake: never Alcohol Intake Frequency:: a few times a week Substance Use Type: denies use *Occupational Status:: retired Housing: house Household Members: spouse *Travel in the last 8 weeks: None Family Hx:: No significant family history Meds Home Medications Medication Instructions Recorded Conf
[2021-09-25 08:25] LABS: Anisocytosis 1+; Hypochromasia 2+; Lymphocytes % 7 % (10-50); Microcytosis 1+; Monocytes % 7 % (2-9); Neutrophils % 86 % (42-76); Platelet Estimate Normal; Total Cells Counted 100
--- NOTE | 2021-09-25 09:25 | HMH.ACPN2 ---
Internal Medicine - PN: Subj *Date: 09/25/21 *Time: 09:25 Interval history: Patient states she is feeling better today. She feels her breathing has improved. She denies pain. She states she actually felt like eating breakfast this morning. She was attended by physical therapy yesterday and was able to get out of bed. White blood cell count has improved to 12,900 with a hemoglobin of 9.3 and hematocrit of 31.9. Sputum cultures are growing E. coli sensitive to the cefepime which patient is on. She was seen by pulmonology yesterday with the following documentation: Continue cefepime awaiting final sputum cultures. Follow serum fungal serologies, serum beta D glucan Continue DuoNebs every 6 hours scheduled along with budesonide every 12 schedule, will change trilogy inhaler when appropriate. Please obtain and upload any recent prior chest imaging available for further review Echocardiogram with the following results: Conclusion 1. Biatrial enlargement, normal left ventricular size, mild concentric left ventricular hypertrophy, visually estimated ejection fraction 45%, with grade 2 diastolic dysfunction without tissue Doppler evidence of raise left atrial pressure, there is abnormal septal motion, there is flattening of the intraventricular septum during systole diastole raising the concerns for presence of pressure and volume overload and right ventricle. 2. Moderately enlarged right ventricle with moderate reduction right ventricular systolic function. 3. Thickened and calcified aortic valve with mild aortic stenosis, valve area is 1.6 cm???. 4. Mild mitral and tricuspid regurgitation, calculated right ventricular systolic pressure is 29 mmHg. 5. No significant pericardial effusion noted. 6. Inferior vena cava is dilated without significant inspiratory collapse. Patient was also seen by cardiology this a.m. Exam Vital signs and Labs for Last 24 Hours: Temp Pulse Resp BP Pulse Ox 98.7 F 67 18 152/76 H 97 09/25/21 08:00 09/25/21 08:00 09/25/21 08:00 09/25/21 08:00 09/25/21 08:00 Laboratory Results - last 24 hr 09/21/21 16:09: Crossmatch (AHG) See Detail 09/25/21 06:10: WBC 12.9 H, RBC 3.80 L, Hgb 9.3 L, Hct 31.9 L, MCV 84.0, MCH 24.4 L, MCHC 29.0 L, RDW 19.4 H, Plt Count 535 H, MPV 9.9, Neut % (Auto) 86.1 H, Lymph % (Auto) 7.3 L, Pacific % (Auto) 6.2, Eos % (Auto) 0.3, Baso % (Auto) 0.2, Neut # (Auto) 11.1 H, Lymph # (Auto) 0.9, Pacific # (Auto) 0.8, Eos # (Auto) 0.0, Baso # (Auto) 0.0, Total Counted 100, Neutrophils % (Manual) 86 H, Lymphocytes % (Manual) 7 L, Monocytes % (Manual) 7, Platelet Estimate Normal, Hypochromasia 2+, Anisocytosis 1+, Microcytosis 1+ 09/25/21 06:10: Sodium 136, Potassium 4.4, Chloride 102, Carbon Dioxide 30, Anion Gap 8.4, BUN 8 D, Creatinine 0.40 L D, Estimated Creat Clear 53, Estimated GFR 157, Est GFR ( Amer) 190 D, Glucose 124 H, Calcium 8.5 I & O for Last 24 hours: Intake & Output 09/22/21 09/23/21 09/24/21 09/25/21 12:59 11:59 11:59 11:59 Intake Total 480 / 480 360 / 360 Output Total 500 / 500 1400 / 1400 Balance -20 / -20 -1040 / -1040 Weight 134 lb 142 lb 4.8 oz Microbiology Reports for the Last 24 Hours: Microbiology 09/22/21 15:10 Sputum - Expectorated Sputum Gram Stain - Final 09/22/21 15:10 Sputum - Expectorated Sputum Sputum Culture - Final Escherichia coli - Constitutional no acute distress - *Routine Respiratory Exam Present: rhonchi, wheezes, crackles Comments: Patient has bilateral rhonchi, crackles, and wheezing throughout. - *Routine Cardiovascular Exam Present: RRR, murmur - *Routine Abdominal Exam Present: soft, normoactive bowel sounds. Absent: tenderness - *Routine Extremities Exam Absent: edema, calf tenderness - *Routine Neurological Exam Present: alert, oriented X3 Assessment and Plan (1) Right lower lobe pneumonia Status: Acute Qualifiers: Pneumonia
[2021-09-25 12:39] LABS: POC Glucose,Bedside 121 (70-110)
[2021-09-25 12:39] LABS: POC Glucose,Bedside 150 (70-110)
[2021-09-26] VITALS (12 sets, daily range): BP systolic 115–150; BP diastolic 68–90; PULSE 60–79; RESP 16–18; TEMP 36.6–37.1; O2SAT 93–99; BMI 23.4
--- NOTE | 2021-09-26 04:32 | PC.NURSE ---
no acute changes overnight. pt is still very dependent on staff for all ADLs, staff has encouraged pt to perform as many task as possible independently. Pt refused to stand and pivot to the BSC with assistance and opted for a bedpan instead. on 3L NC, sats in the 90s. PT has slept well this shift, VSS, call light in reach, no concerns at this time.
--- NOTE | 2021-09-26 08:44 | HMH.ACPN2 ---
Internal Medicine - PN: Subj *Date: 09/26/21 *Time: 10:40 Interval history: Patient states she is hurting in her back this morning. She says her pain medication is late. She states her mouth is also hurting and she has blisters on the roof of her mouth. She would like some Magic mouthwash for this. She would like her catheter removed and states she wants to be able to go to the bathroom in order to try to have a bowel movement. She states they would only let her have a bedpan or bedside commode and she refuses this. She has not been up out of bed. She did have a fall Friday night trying to get up. Exam Vital signs and Labs for Last 24 Hours: Temp Pulse Resp BP Pulse Ox 98.8 F 62 18 139/86 97 09/26/21 07:47 09/26/21 07:47 09/26/21 07:47 09/26/21 07:47 09/26/21 07:47 Laboratory Results - last 24 hr 09/24/21 15:32: POC Glucose 150 H 09/25/21 05:06: POC Glucose 121 H I & O for Last 24 hours: Intake & Output 09/23/21 09/24/21 09/25/21 09/26/21 11:59 11:59 11:59 11:59 Intake Total 480 / 480 360 / 360 1654 / 1654 Output Total 500 / 500 1400 / 1725 950 / 950 Balance -20 / -20 -1040 / -1365 704 / 704 Weight 134 lb 142 lb 4.8 oz 146 lb Microbiology Reports for the Last 24 Hours: Microbiology 09/22/21 15:10 Sputum - Expectorated Sputum Gram Stain - Final 09/22/21 15:10 Sputum - Expectorated Sputum Sputum Culture - Final Escherichia coli - Constitutional no acute distress - *Routine Respiratory Exam Present: rhonchi, crackles - *Routine Cardiovascular Exam Present: RRR, murmur - *Routine Abdominal Exam Present: soft, normoactive bowel sounds, tenderness (diffuse), distended - *Routine Extremities Exam Absent: cyanosis, clubbing, edema - *Routine Skin Exam Present: warm. Absent: rash - *Routine Neurological Exam Present: alert, oriented X3 Assessment and Plan (1) Right lower lobe pneumonia Status: Acute Qualifiers: Pneumonia type: due to unspecified organism Qualified Code(s): J18.9 - Pneumonia, unspecified organism Category: Medical Code(s): J18.9 - Pneumonia, unspecified organism (2) Septic shock Status: Acute Category: Medical Code(s): A41.9 - Sepsis, unspecified organism; R65.21 - Severe sepsis with septic shock (3) Anemia Status: Acute Qualifiers: Anemia type: unspecified type Qualified Code(s): D64.9 - Anemia, unspecified Category: Medical Code(s): D64.9 - Anemia, unspecified (4) Delirium Status: Acute Category: Medical Code(s): R41.0 - Disorientation, unspecified (5) Hypoglycemia Status: Acute Category: Medical Code(s): E16.2 - Hypoglycemia, unspecified (6) Elevated troponin Status: Acute Category: Medical Code(s): R77.8 - Other specified abnormalities of plasma proteins (7) Elevated brain natriuretic peptide (BNP) level Status: Acute Category: Medical Code(s): R79.89 - Other specified abnormal findings of blood chemistry (8) Acute kidney injury Status: Acute Category: Medical Code(s): N17.9 - Acute kidney failure, unspecified (9) Positive urine drug screen Status: Acute Category: Medical Code(s): R82.5 - Elevated urine levels of drugs, medicaments and biological substances (10) Chronic back pain Status: Chronic Qualifiers: Back pain location: low back pain Back pain laterality: bilateral Sciatica presence: unspecified whether sciatica present Qualified Code(s): M54.50 - Low back pain, unspecified; G89.29 - Other chronic pain Category: Medical Code(s): M54.9 - Dorsalgia, unspecified; G89.29 - Other chronic pain (11) Hypokalemia Status: Acute Category: Medical Code(s): E87.6 - Hypokalemia - Assessment and plan all Dx Assessment and Plan for all problems:: Will order magic mouthwash and oral nystatin. Will also start on miralax and stool softners as she has not had a BM since she's been here. Will discon
[2021-09-26 12:04] LABS: POC Glucose,Bedside 140 (70-110)
[2021-09-26 17:05] LABS: POC Glucose,Bedside 105 (70-110)
[2021-09-27] VITALS (14 sets, daily range): BP systolic 104–151; BP diastolic 57–89; PULSE 60–80; RESP 12–20; TEMP 36.6–36.9; O2SAT 94–99; BMI 23.3
--- NOTE | 2021-09-27 00:07 | PC.NURSE ---
She is A&Ox4. She reports chronic pain in her back and rates it a 10/10. She received PRN pain medication. She has a nicotine patch on her LUE. She reports her last BM was on 09/26/21. She ambulates to the bathroom with assist x1. She continues on Q 30 min observation. Continues on 2LPM n/c. Safety set and call light within reach.
[2021-09-27 01:17] LABS: POC Glucose,Bedside 113 (70-110)
--- NOTE | 2021-09-27 08:49 | HMH.ACPN2 ---
Internal Medicine - PN: Subj *Date: 09/27/21 *Time: 08:49 Interval history: Patient does states she is feeling better today. She is much more pleasant. She states her mouth is feeling better after using the Magic mouthwash and the nystatin and she was able to eat a small amount. She took the MiraLAX and stool softeners and has had 3 good bowel movements. She states she was able to get to the bathroom with help. She slept better last night. Exam Vital signs and Labs for Last 24 Hours: Temp Pulse Resp BP Pulse Ox 98.4 F 70 17 137/78 94 L 09/27/21 08:00 09/27/21 08:00 09/27/21 08:00 09/27/21 08:00 09/27/21 08:00 Laboratory Results - last 24 hr 09/26/21 11:54: POC Glucose 140 H 09/26/21 16:44: POC Glucose 105 09/26/21 20:43: POC Glucose 113 H I & O for Last 24 hours: Intake & Output 09/24/21 09/25/21 09/26/21 09/27/21 11:59 11:59 11:59 11:59 Intake Total 480 / 480 360 / 360 3180 / 3180 360 / 360 Output Total 500 / 500 1400 / 1725 2200 / 2200 0 / 0 Balance -20 / -20 -1040 / -1365 980 / 980 360 / 360 Weight 134 lb 142 lb 4.8 oz 146 lb 145 lb Microbiology Reports for the Last 24 Hours: Microbiology 09/21/21 13:45 Blood Blood Culture - Final NO GROWTH AFTER 5 DAYS 09/21/21 13:45 Blood Blood Culture - Final NO GROWTH AFTER 5 DAYS - Constitutional no acute distress - *Routine Respiratory Exam Present: rhonchi, crackles - *Routine Cardiovascular Exam Present: RRR - *Routine Abdominal Exam Present: soft, normoactive bowel sounds, distended. Absent: tenderness - *Routine Extremities Exam Absent: cyanosis, clubbing, edema - *Routine Skin Exam Present: warm. Absent: rash - *Routine Neurological Exam Present: alert, oriented X3 Assessment and Plan (1) Right lower lobe pneumonia Status: Acute Qualifiers: Pneumonia type: due to unspecified organism Qualified Code(s): J18.9 - Pneumonia, unspecified organism Category: Medical Code(s): J18.9 - Pneumonia, unspecified organism (2) Septic shock Status: Acute Category: Medical Code(s): A41.9 - Sepsis, unspecified organism; R65.21 - Severe sepsis with septic shock (3) Anemia Status: Acute Qualifiers: Anemia type: unspecified type Qualified Code(s): D64.9 - Anemia, unspecified Category: Medical Code(s): D64.9 - Anemia, unspecified (4) Delirium Status: Acute Category: Medical Code(s): R41.0 - Disorientation, unspecified (5) Hypoglycemia Status: Acute Category: Medical Code(s): E16.2 - Hypoglycemia, unspecified (6) Elevated troponin Status: Acute Category: Medical Code(s): R77.8 - Other specified abnormalities of plasma proteins (7) Elevated brain natriuretic peptide (BNP) level Status: Acute Category: Medical Code(s): R79.89 - Other specified abnormal findings of blood chemistry (8) Acute kidney injury Status: Acute Category: Medical Code(s): N17.9 - Acute kidney failure, unspecified (9) Positive urine drug screen Status: Acute Category: Medical Code(s): R82.5 - Elevated urine levels of drugs, medicaments and biological substances (10) Chronic back pain Status: Chronic Qualifiers: Back pain location: low back pain Back pain laterality: bilateral Sciatica presence: unspecified whether sciatica present Qualified Code(s): M54.50 - Low back pain, unspecified; G89.29 - Other chronic pain Category: Medical Code(s): M54.9 - Dorsalgia, unspecified; G89.29 - Other chronic pain (11) Hypokalemia Status: Acute Category: Medical Code(s): E87.6 - Hypokalemia - Assessment and plan all Dx Assessment and Plan for all problems:: Patient is improving. She is anxious to go home. Will discuss further care with Dr. Cheek.
--- NOTE | 2021-09-27 09:39 | XR_ITS ---
PROCEDURE: XR CHEST 2V CLINICAL HISTORY: Bronchitis COMPARISON: CR CXR2V XR chest 2V from 01/05/2018 CR XR CHEST PORTABLE from 09/21/[address] CHEST W CON from 09/24/2021 FINDINGS: The cardiomediastinal silhouette and pulmonary vascularity are within normal limits. There remains dense consolidation in the right middle lobe. Air-fluid levels are present in the mid upper aspect the area of consolidation worrisome for developing abscess. There is a small right pleural effusion with consolidation/volume loss in the right lower lobe posteriorly. Parenchymal opacity is present in the right upper lobe at the 1st interspace region and may be due to an area atelectatic change, scarring, or developing nodule. Postsurgical changes with multiple inter pedicular screws and connecting rods in the thoracic spine. Status post kyphoplasty in the lower thoracic and upper lumbar region. Neurostimulator device noted in the midthoracic area. There is a small hiatal hernia. IMPRESSION: Right middle lobe pneumonia once again noted with air-fluid level in the mid upper aspect of the pneumonia suspicious for cavitation/abscess development. Small right pleural effusion with right basilar atelectasis Indeterminate parenchymal opacity right upper for which follow-up is suggested. Dictated by: David Garcia MD 09/27/2021 14:34 David Garcia MD in [facility] 09/27/2021 14:34
--- NOTE | 2021-09-27 11:28 | HMH.ACPN ---
Internal Medicine - PN: Subj *Date: 09/27/21 *Time: 11:28 Exam Vital signs and Labs for Last 24 Hours: Temp Pulse Resp BP Pulse Ox 98.4 F 70 17 137/78 94 L 09/27/21 08:00 09/27/21 08:00 09/27/21 08:00 09/27/21 08:00 09/27/21 08:00 Laboratory Results - last 24 hr 09/26/21 11:54: POC Glucose 140 H 09/26/21 16:44: POC Glucose 105 09/26/21 20:43: POC Glucose 113 H I & O for Last 24 hours: Intake & Output 09/24/21 09/25/21 09/26/21 09/27/21 23:59 23:59 23:59 23:59 Intake Total 300 / 300 1534 / 1534 2065 / 2066 Output Total 850 / 1550 1350 / 1650 1550 / 1550 0 / 0 Balance -550 / -1250 184 / -116 516 / 516 0 / 0 Weight 61 kg 64.546 kg 66.224 kg 65.771 kg Microbiology Reports for the Last 24 Hours: Microbiology 09/21/21 13:45 Blood Blood Culture - Final NO GROWTH AFTER 5 DAYS 09/21/21 13:45 Blood Blood Culture - Final NO GROWTH AFTER 5 DAYS Assessment and Plan (1) Right lower lobe pneumonia Status: Acute Qualifiers: Pneumonia type: due to unspecified organism Qualified Code(s): J18.9 - Pneumonia, unspecified organism Category: Medical Code(s): J18.9 - Pneumonia, unspecified organism (2) Septic shock Status: Acute Category: Medical Code(s): A41.9 - Sepsis, unspecified organism; R65.21 - Severe sepsis with septic shock (3) Anemia Status: Acute Qualifiers: Anemia type: unspecified type Qualified Code(s): D64.9 - Anemia, unspecified Category: Medical Code(s): D64.9 - Anemia, unspecified (4) Delirium Status: Acute Category: Medical Code(s): R41.0 - Disorientation, unspecified (5) Hypoglycemia Status: Acute Category: Medical Code(s): E16.2 - Hypoglycemia, unspecified (6) Elevated troponin Status: Acute Category: Medical Code(s): R77.8 - Other specified abnormalities of plasma proteins (7) Elevated brain natriuretic peptide (BNP) level Status: Acute Category: Medical Code(s): R79.89 - Other specified abnormal findings of blood chemistry (8) Acute kidney injury Status: Acute Category: Medical Code(s): N17.9 - Acute kidney failure, unspecified (9) Positive urine drug screen Status: Acute Category: Medical Code(s): R82.5 - Elevated urine levels of drugs, medicaments and biological substances (10) Chronic back pain Status: Chronic Qualifiers: Back pain location: low back pain Back pain laterality: bilateral Sciatica presence: unspecified whether sciatica present Qualified Code(s): M54.50 - Low back pain, unspecified; G89.29 - Other chronic pain Category: Medical Code(s): M54.9 - Dorsalgia, unspecified; G89.29 - Other chronic pain (11) Hypokalemia Status: Acute Category: Medical Code(s): E87.6 - Hypokalemia The patient's infection will respond to the chosen ABx?: Yes Is the patient receiving the right drug, dose, and route?: Yes Could a more targeted ABx be ordered?: No (ECOLI IN SPUTUM CX SENSITIVE TO CEFEPIME. BLOOD CX -X2)
[2021-09-27 16:13] LABS: Fungitell(Beta D-Glucan) Serum <31 pg/mL (<80)
[2021-09-27 16:48] LABS: POC Glucose,Bedside 75 (70-110)
--- NOTE | 2021-09-27 18:15 | PC.NURSE ---
Pt is alert and oriented x4. She has been pleasant with staff. Lungs are clear, she remains on 3L NC and tolerating well. She has requested PRN norco x2 this shift for chronic pain with relief noted on reassessment. No other complaints expressed.
[2021-09-27 21:13] LABS: POC Glucose,Bedside 84 (70-110)
[2021-09-28] VITALS: BP 120/68; PULSE 64; PULSE 70; RESP 14; TEMP 36.9; O2SAT 95
--- NOTE | 2021-09-28 03:36 | PC.NURSE ---
pt has slept most of the night. no issues or complications noted. axo, VSS
[2021-09-28 04:00] VITALS: BP 138/69; PULSE 65; PULSE 69; RESP 18; TEMP 36.8; O2SAT 95
[2021-09-28 05:00] VITALS: BMI 22.8
[2021-09-28 05:50] VITALS: PULSE 73; PULSE 75; O2SAT 97
[2021-09-28 06:25] LABS: POC Glucose,Bedside 90 (70-110)
[2021-09-28 07:22] LABS: Basophils % 0.2 % (0.1-2.0); Eosinophils # 0.2 K/mm3 (0.0-0.4); Eosinophils % 0.9 % (0.1-12.0); Hematocrit 34.6 % (37.0-47.0); Hemoglobin 10.6 g/dL (12.2-16.2); Lymphocytes # 0.7 K/mm3 (0.7-4.5); Mean Corpuscular HGB Conc 30.7 g/dL (31.8-35.4); Mean Corpuscular Hemoglobin 24.6 pg (27.0-31.2); Mean Corpuscular Volume 79.9 fl (81-99); Mean Platelet Volume 7.9 fl (7.4-10.4); Monocytes # 0.5 K/mm3 (0.1-1.0); Monocytes % 3.2 % (1.7-9.3); Neutrophils # 14.9 K/mm3 (1.8-7.8); Neutrophils % 91.7 % (37.0-80.0); Platelet Count 600 K/mm3 (142-424); Red Blood Count 4.33 M/mm3 (4.20-5.40); Red Cell Distribution Width 19.6 % (11.5-17.5); White Blood Count 16.2 K/mm3 (4.8-10.8)
[2021-09-28 07:29] LABS: MANUAL DIFFERENTIAL MANUAL DIFFERENTIAL (MANUAL DIFF)
[2021-09-28 07:41] VITALS: BP 104/71; PULSE 82; RESP 16; TEMP 37.6; O2SAT 94
[2021-09-28 07:47] LABS: Alanine Aminotransferase 24 U/L (12-78); Albumin Level 2.9 g/dl (3.5-5.0); Albumin/Globulin Ratio 0.9 (1.1-1.8); Alkaline Phosphatase 200 U/L (38-126); Anion Gap 7.4 mEq/L (5-15); Aspartate Amino Transferase 32 U/L (14-36); Bilirubin,Total 0.2 mg/dl (0.2-1.3); Blood Urea Nitrogen 7 mg/dl (7-17); Calcium 8.5 mg/dl (8.4-10.2); Carbon Dioxide 34 mmol/L (22.0-30.0); Chloride 91 mmol/L (98-107); Creatinine Clearance Estimated 53 mL/min (50-200); Estimated Glomerular Filt Rate 157 ml/min (>60); GFR (African American) 190 ML/MIN (>60); Globulin 3.4 g/dL (1.3-3.2); Glucose 85 mg/dl (74-100); Potassium 4.4 mmoL/L (3.5-5.1); Sodium 128 mmol/L (136-145); Total Protein,Serum 6.3 g/dl (6.3-8.2)
[2021-09-28 08:00] VITALS: PULSE 63
[2021-09-28 08:36] LABS: Lymphocytes % 3 % (10-50); Monocytes % 1 % (2-9); Neutrophils % 96 % (42-76); Total Cells Counted 100
[2021-09-28 08:37] LABS: Hypochromasia 2+; Macrocytosis 1+; Microcytosis 1+; Platelet Estimate Normal
--- NOTE | 2021-09-28 08:38 | PC.NURSE ---
O2 sat 87% on RA.
--- NOTE | 2021-09-28 08:56 | HMH.ACPN2 ---
Internal Medicine - PN: Subj *Date: 09/28/21 *Time: 08:56 Interval history: I spoke to Dr. Cook yesterday regarding discharge of this patient. She is able to be discharged today on cefdinir 300 mg p.o. twice daily. She will have nasal O2 at 2 L at home. She will continue with DuoNeb treatments 3 times a day. She will be seen in follow-up in [address] Vázquez. She is fully informed regarding her lesion on the right upper chest. The chest x-ray yesterday confirmed continued presence of this lesion. Exam Vital signs and Labs for Last 24 Hours: Temp Pulse Resp BP Pulse Ox 99.7 F H 82 16 104/71 L 94 L 09/28/21 07:41 09/28/21 07:41 09/28/21 07:41 09/28/21 07:41 09/28/21 07:41 Laboratory Results - last 24 hr 09/25/21 09:45: Beta-(1,3)-D-Glucan <31 09/27/21 16:31: POC Glucose 75 09/27/21 20:12: POC Glucose 84 09/28/21 05:58: POC Glucose 90 09/28/21 07:04: WBC 16.2 H, RBC 4.33, Hgb 10.6 L, Hct 34.6 L, MCV 79.9 L, MCH 24.6 L, MCHC 30.7 L, RDW 19.6 H, Plt Count 600 H, MPV 7.9, Neut % (Auto) 91.7 H, Lymph % (Auto) 4.0 L, [place] % (Auto) 3.2, Eos % (Auto) 0.9, Baso % (Auto) 0.2, Neut # (Auto) 14.9 H, Lymph # (Auto) 0.7, [place] # (Auto) 0.5, Eos # (Auto) 0.2, Baso # (Auto) 0.0, Total Counted 100, Neutrophils % (Manual) 96 H, Lymphocytes % (Manual) 3 L, Monocytes % (Manual) 1 L, Platelet Estimate Normal, Hypochromasia 2+, Microcytosis 1+, Macrocytosis 1+ 09/28/21 07:04: Sodium 128 L, Potassium 4.4, Chloride 91 L, Carbon Dioxide 34 H, Anion Gap 7.4, BUN 7, Creatinine 0.40 L, Estimated Creat Clear 53, Estimated GFR 157, Est GFR ( Amer) 190, Glucose 85, Calcium 8.5, Total Bilirubin 0.2, AST 32, ALT 24, Alkaline Phosphatase 200 H, Total Protein 6.3, Albumin 2.9 L, Globulin 3.4 H, Albumin/Globulin Ratio 0.9 L I & O for Last 24 hours: Intake & Output 09/25/21 09/26/21 09/27/21 09/28/21 11:59 11:59 11:59 11:59 Intake Total 360 / 360 3180 / 3180 540 / 540 720 / 720 Output Total 1400 / 1725 2200 / 2200 0 / 0 Balance -1040 / -1365 980 / 980 540 / 540 720 / 720 Weight 142 lb 4.8 oz 146 lb 145 lb 142 lb 9.6 oz - Constitutional no acute distress - *Routine HEENT Exam Head: Present: normocephalic Eye: Present: EOMI, PERRL ENT: Present: mucous membranes moist - *Routine Respiratory Exam Present: decreased breath sounds, rhonchi (Right upper), wheezes (Right upper) - *Routine Cardiovascular Exam Present: RRR - *Routine Abdominal Exam Present: soft, normoactive bowel sounds. Absent: tenderness - *Routine Extremities Exam Absent: cyanosis, clubbing, edema - *Routine Skin Exam Present: warm. Absent: rash - *Routine Neurological Exam Present: alert, oriented X3 Assessment and Plan (1) Right upper lobe pneumonia Status: Acute Category: Medical Code(s): J18.9 - Pneumonia, unspecified organism (2) Cavitary lesion of lung Status: Acute Category: Medical Code(s): J98.4 - Other disorders of lung (3) Septic shock Status: Acute Category: Medical Code(s): A41.9 - Sepsis, unspecified organism; R65.21 - Severe sepsis with septic shock (4) Anemia Status: Acute Qualifiers: Anemia type: unspecified type Qualified Code(s): D64.9 - Anemia, unspecified Category: Medical Code(s): D64.9 - Anemia, unspecified (5) Delirium Status: Acute Category: Medical Code(s): R41.0 - Disorientation, unspecified (6) Hypoglycemia Status: Acute Category: Medical Code(s): E16.2 - Hypoglycemia, unspecified (7) Elevated troponin Status: Acute Category: Medical Code(s): R77.8 - Other specified abnormalities of plasma proteins (8) Elevated brain natriuretic peptide (BNP) level Status: Acute Category: Medical Code(s): R79.89 - Other specified abnormal findings of blood chemistry (9) Acute kidney injury Status: Acute Category: Medical Code(s): N17.9 - Acute kidney failure, unspecified (10) Positive urine drug screen Status: Acute Category: Medical Code(s): R
--- NOTE | 2021-09-28 09:31 | SW/DCPLANNER ---
Addendum entered by Aixa Hope 09/28/21 12:03: [facility] has called back stating that services will begin Friday for this patient. Addendum entered by Aixa Hope 09/28/21 11:44: Patient currently has a nebulizer machine at home. Original Note: The plan for this patient is to return home today. Patient has requested home health services: previously used [facility]. I have faxed patient information/order to [facility]. I will follow up with [facility] once patient information/order is reviewed. Dr Cheek has also requested that patient be set up with oxygen and a nebulizer machine. Patient information/order has also been faxed to [facility] for a portable O2 tank, home concentrator and a nebulizer machine. Sheila [employer]/ [employer] has stated that portable O2 tank will be delivered to patients room and concentrator and neb machine will be delivered to home.
[2021-09-28 10:22] VITALS: PULSE 77; PULSE 82
--- NOTE | 2021-09-28 11:45 | HMH.PULMPN ---
Internal Medicine - PN: Subj *Date: 09/28/21 *Time: 11:45 Interval history: No acute respiratory events over the last 72 hours. Exam - Constitutional Constitutional:: Present: no acute distress, comfortable - HENMT Exam HENMT: Present: normocephalic, atraumatic - Eye Exam Eyes:: Present: normal appearance both eyes and related structures - Neck Exam Neck:: Present: normal visual inspection - Respiratory Exam Respiratory:: Present: able to speak in complete sentences, respiratory distress, crackles - Cardiovascular Exam Cardiac:: Present: S1, S2 - GI Exam GI:: Present: soft, normoactive bowel sounds - Skin Exam Skin: Present: warm, no rash - Neurological Exam Neurological: Present: alert, awake, normal cognition - Extremities Exam Extremities: Present: no cyanosis, no clubbing - Psychiatric Exam Psychiatric: Present: normal affect Assessment and Plan (1) Right upper lobe pneumonia Status: Acute Category: Medical Code(s): J18.9 - Pneumonia, unspecified organism (2) Cavitary lesion of lung Status: Acute Category: Medical Code(s): J98.4 - Other disorders of lung (3) Septic shock Status: Acute Category: Medical Code(s): A41.9 - Sepsis, unspecified organism; R65.21 - Severe sepsis with septic shock (4) Anemia Status: Acute Qualifiers: Anemia type: unspecified type Qualified Code(s): D64.9 - Anemia, unspecified Category: Medical Code(s): D64.9 - Anemia, unspecified (5) Delirium Status: Acute Category: Medical Code(s): R41.0 - Disorientation, unspecified (6) Hypoglycemia Status: Acute Category: Medical Code(s): E16.2 - Hypoglycemia, unspecified (7) Elevated troponin Status: Acute Category: Medical Code(s): R77.8 - Other specified abnormalities of plasma proteins (8) Elevated brain natriuretic peptide (BNP) level Status: Acute Category: Medical Code(s): R79.89 - Other specified abnormal findings of blood chemistry (9) Acute kidney injury Status: Acute Category: Medical Code(s): N17.9 - Acute kidney failure, unspecified (10) Positive urine drug screen Status: Acute Category: Medical Code(s): R82.5 - Elevated urine levels of drugs, medicaments and biological substances (11) Chronic back pain Status: Chronic Qualifiers: Back pain location: low back pain Back pain laterality: bilateral Sciatica presence: unspecified whether sciatica present Qualified Code(s): M54.50 - Low back pain, unspecified; G89.29 - Other chronic pain Category: Medical Code(s): M54.9 - Dorsalgia, unspecified; G89.29 - Other chronic pain (12) Hypokalemia Status: Acute Category: Medical Code(s): E87.6 - Hypokalemia - Assessment and plan all Dx Assessment and Plan for all problems:: #Acute hypoxic respiratory failure: #Necrotizing pneumonia: #Lung abscess 71-year-old history of COPD greater than 30 pack history presented with worsening respiratory distress. CT chest performed bilateral upper lobe airspace disease, showed right lower lobe necrotic pneumonia with central cavitation along with possible right upper lobe airspace disease. The possibility of underlying lung mass necrotic lesion cannot be completely ruled out. Subcarinal and right hilar lymphadenopathy also noted. No recent prior chest imaging available for review. Sputum culture growing gram-negative rods positive for E. coli, pansensitive. Patient admission was initiated ceftriaxone with that was changed to cefepime that eventually changed to cefdinir on discharge. Patient also admits she had a recent low-dose CT screening scan this year and I have personally requested the primary team to obtain the above-mentioned imaging. Repeat chest x-ray from yesterday continued to show right lower lobe pulmonary abscess along with the main concern right upper lobe airspace disease. Serum beta glucan less than 31. Awaiting serum fungal serology. Patient respiratory status rem
--- NOTE | 2021-09-28 14:53 | HMH.DCSUM ---
General - General Admission date:: 09/21/21 Discharge date: 09/28/21 HPI HPI: Ms. Scott is a 71 yo female brought in by ambulance. History obtained from , EMS, patient. The patient arrives on CPAP and has confusion and therefore cannot give limited history herself. EMS states that they were called for back pain. They found the patient confused and hypoxic with a room air pulse oximetry in the 70s, coming up only into the 80s on nonrebreather mask followed by CPAP. They report that they observed a productive cough with green sputum. Patient's states that she has had increase in her chronic back pain for a couple of days. He tried to get her to go to her primary care doctor yesterday but she did not want to. He says that yesterday she was not confused like this. He says that he found her laying on the couch today stating that she wanted to go to the hospital. She has COPD and is on nebulizer treatments at home. She is a smoker. She is not on oxygen or CPAP/BiPAP. She is on pain medication, but does not know what it is. Medications were brought in and the only analgesic present is meloxicam. No known exposure to illnesses including COVID-19. She has been vaccinated against COVID-19. He states that she had back surgery with rods placed in March 2020. Since then she has had chronic back pain as well as distention of her abdomen which she says has been evaluated, but no cause found. states that she has had colonoscopy by Dr. Wadsworth because of her abdominal distention. In the emergency department she is not in respiratory distress and has normal color. Poor waveform on pulse ox. ABGs obtained which show PO2 of greater than 400 on BiPAP with no hypercapnia. She is transitioned to nasal cannula oxygen. Reported fingerstick blood sugar by EMS was 120s. However, in the emergency department blood sugar was 50. She has no history of diabetes. Blood sugar was rechecked and was 48. D50 administered with improvement in mental status. 2:20 PM: Still slow to respond and confusion after D50. Pulse ox remains 100% on 2 L nasal cannula. Rectal temperature was 103 degrees. Nurse reports that stool was not melanotic or bloody. Medicated for fever. Chest x-ray shows a right lower lobe pneumonia. Antibiotics ordered. Agrees to admit the patient to the hospital. (above as per ER physican) Hospital Course Hospital Course: The patient's head CT showed nothing acute. It did show a small focus of increased density in the left globus pallidus possibly due to an area of mineralization. Radiology felt a follow-up would confirm this. She was admitted and started on IV fluids along with a Levophed drip due to hypotension. She had been given D50 with improvement in her glucose and was started on antibiotics for pneumonia. Her her murmur was very prominent and was a grade 4 out of 6 aortic murmur with a high-pitched component. Dr. Cheek also felt there was a mitral murmur. He reviewed her previous echo from March 2021 which showed significant aortic stenosis but not significant insufficiency. A repeat echo was ordered. He was able to speak with Dr. Hebert and he reviewed the patient's echo as well and found the report reassuring regarding her valvular heart disease. Dr. Cheek did not feel there was a need to withhold fluids regarding treatment for her sepsis. The patient did have some agitation and confusion early in her admission. She was complaining of back pain, which was chronic, and wanted her pain medication reordered. Her potassium was low and was replaced. Her H&H was low and she required transfusion. She had a knee x-ray showing mild tricompartmental degenerative changes with a 5 mm intra-articular body. She continued with bilateral rhonchi and some wheezing, therefore Dr. Cheek ordered a chest CT and consulted pulmonology. Her chest CT showed a masslike area of consolidation involving the right middle lob
[2021-09-28 17:10] LABS: Aspergillus flavus Negative (Neg:<1:1); Aspergillus fumigatus Negative (Neg:<1:1); Aspergillus niger Negative (Neg:<1:1); Blastomyces Antibody Negative (Neg:<1:1)
== END 2021-09-28 11:33 | disposition home or self-care (01) | DRG 871 ==
LOC: ER 15:09 → 2ND 17:02
PROVIDERS: Internal Medicine Pulmonary Disease; Nurse Practitioner Family; Physician Assistant; Admitting Provider Family Medicine; Emergency Provider Emergency Medicine; PCP Nurse Practitioner Family; Visit Provider Family Medicine
DX: A41.9 Sepsis, unspecified organism (principal); R65.21 Severe sepsis with septic shock; J15.5 Pneumonia due to Escherichia coli; J96.01 Acute respiratory failure with hypoxia; N17.9 Acute kidney failure, unspecified; J44.0 Chronic obstructive pulmonary disease with (acute) lower respiratory infection; I42.9 Cardiomyopathy, unspecified; M54.50 Low back pain, unspecified; E87.6 Hypokalemia; Z20.822 Contact with and (suspected) exposure to COVID-19; F17.210 Nicotine dependence, cigarettes, uncomplicated; I10 Essential (primary) hypertension; E03.9 Hypothyroidism, unspecified; D64.9 Anemia, unspecified; E16.2 Hypoglycemia, unspecified; R77.8 Other specified abnormalities of plasma proteins; I08.3 Combined rheumatic disorders of mitral, aortic and tricuspid valves; Z71.6 Tobacco abuse counseling; R91.8 Other nonspecific abnormal finding of lung field
CPT/HCPCS: 36415; 70450; 71045; 71046; 71260; 73562; 80048; 80053; 80305; 80329; 81001; 82803; 82962; 83605; 83880; 84443; 84484; 85007; 85025; 86606; 86612; 86850; 87040; 87070; 87077; 87186; 87205; 87449; 93005; 93306; 94640; 94660; 94760; 94761; 96365; 96366; 96367; 96375; 97110; 97116; 97162; 97166; 97530; 97535; 99285; C9803; J0456; P9016; Q9967; U0003; U0005

== ENCOUNTER → 2021-10-08 11:49 | Outpatient (CLI) | payer MEDICARE, OTHER, SELFPAY ==
[2021-10-08 14:27] LABS: Basophils % 0.4 % (0.1-2.0); Eosinophils # 0.1 K/mm3 (0.0-0.4); Hematocrit 36.2 % (37.0-47.0); Hemoglobin 10.9 g/dL (12.2-16.2); Lymphocytes # 0.7 K/mm3 (0.7-4.5); Lymphocytes % 9.4 % (10-50); Mean Corpuscular HGB Conc 30.2 g/dL (31.8-35.4); Mean Corpuscular Hemoglobin 24.5 pg (27.0-31.2); Mean Corpuscular Volume 81.1 fl (81-99); Mean Platelet Volume 9.7 fl (7.4-10.4); Monocytes # 0.3 K/mm3 (0.1-1.0); Monocytes % 4.1 % (1.7-9.3); Neutrophils # 6.2 K/mm3 (1.8-7.8); Neutrophils % 85.1 % (37.0-80.0); Platelet Count 623 K/mm3 (142-424); Red Blood Count 4.47 M/mm3 (4.20-5.40); White Blood Count 7.2 K/mm3 (4.8-10.8)
[2021-10-08 14:31] LABS: MANUAL DIFFERENTIAL MANUAL DIFFERENTIAL (MANUAL DIFF)
[2021-10-08 14:56] LABS: Erythrocyte Sedimentation Rate 39 mm/hr (0-30)
[2021-10-08 16:33] LABS: Lymphocytes % 13 % (10-50); Monocytes % 3 % (2-9); Neutrophils % 84 % (42-76); Total Cells Counted 100
[2021-10-08 16:34] LABS: Platelet Estimate Normal; RBC Morphology Normal
[2021-10-08 16:37] LABS: Chloride 95 mmol/L (98-107); Potassium 4.5 mmoL/L (3.5-5.1); Sodium 131 mmol/L (136-145)
[2021-10-08 16:40] LABS: Alanine Aminotransferase 14 U/L (12-78); Albumin Level 3.3 g/dl (3.5-5.0); Alkaline Phosphatase 132 U/L (38-126); Anion Gap 11.5 mEq/L (5-15); Aspartate Amino Transferase 34 U/L (14-36); Blood Urea Nitrogen 11 mg/dl (7-17); Carbon Dioxide 29 mmol/L (22.0-30.0); Estimated Glomerular Filt Rate 82 ml/min (>60); GFR (African American) 100 ML/MIN (>60); Globulin 3.2 g/dL (1.3-3.2); Total Protein,Serum 6.5 g/dl (6.3-8.2)
[2021-10-08 16:41] LABS: Calcium 8.6 mg/dl (8.4-10.2); Glucose 160 mg/dl (74-100)
[2021-10-08 16:52] LABS: Bilirubin,Total < 0.1 mg/dl (0.2-1.3)
== END ==
PROVIDERS: Visit Provider Internal Medicine Infectious Disease
DX: J85.1 Abscess of lung with pneumonia (principal)
CPT/HCPCS: 80053; 85007; 85025; 85651

== ENCOUNTER → 2021-10-15 11:57 | Outpatient (CLI) | payer MEDICARE, OTHER, SELFPAY ==
[2021-10-15 14:14] LABS: Basophils % 0.8 % (0.1-2.0); Eosinophils # 0.2 K/mm3 (0.0-0.4); Eosinophils % 4.7 % (0.1-12.0); Hematocrit 30.4 % (37.0-47.0); Hemoglobin 9.5 g/dL (12.2-16.2); Lymphocytes # 1.1 K/mm3 (0.7-4.5); Lymphocytes % 23.5 % (10-50); Mean Corpuscular HGB Conc 31.2 g/dL (31.8-35.4); Mean Corpuscular Hemoglobin 25.6 pg (27.0-31.2); Mean Platelet Volume 9.8 fl (7.4-10.4); Monocytes # 0.3 K/mm3 (0.1-1.0); Monocytes % 6.2 % (1.7-9.3); Neutrophils % 64.8 % (37.0-80.0); Platelet Count 298 K/mm3 (142-424); Red Blood Count 3.71 M/mm3 (4.20-5.40); Red Cell Distribution Width 20.4 % (11.5-17.5); White Blood Count 4.6 K/mm3 (4.8-10.8)
[2021-10-15 15:13] LABS: Erythrocyte Sedimentation Rate > 140 mm/hr (0-30)
[2021-10-15 15:35] LABS: Alanine Aminotransferase 21 U/L (12-78); Albumin Level 3.3 g/dl (3.5-5.0); Alkaline Phosphatase 94 U/L (38-126); Anion Gap 10.9 mEq/L (5-15); Aspartate Amino Transferase 43 U/L (14-36); Bilirubin,Total 0.2 mg/dl (0.2-1.3); Blood Urea Nitrogen 7 mg/dl (7-17); Carbon Dioxide 30 mmol/L (22.0-30.0); Chloride 97 mmol/L (98-107); Estimated Glomerular Filt Rate 99 ml/min (>60); GFR (African American) 119 ML/MIN (>60); Globulin 3.3 g/dL (1.3-3.2); Glucose 117 mg/dl (74-100); Potassium 4.9 mmoL/L (3.5-5.1); Sodium 133 mmol/L (136-145); Total Protein,Serum 6.6 g/dl (6.3-8.2)
== END ==
PROVIDERS: Visit Provider Nurse Practitioner Family
DX: J18.9 Pneumonia, unspecified organism (principal)
CPT/HCPCS: 80053; 85025; 85651